=== PATIENT | female | born 1975 | race Two or more races ===

== ENCOUNTER → 2016-12-03 | Outpatient (REF) | payer OTHER ==
[~2016-12-03] MED LIST: DEPA500T2 PO; DITR1TAB PO; DOCU10CA PO; HAIRTAB5 PO; IBUP80TA PO; LORTTAB2 PO; NORCOTAB PO; PAME10CA PO; REGL10TA6 PO; TOPA100T PO
[2016-12-03 13:53] LABS: BASO % 0.6 % (0.0-1.0); EOS # 0.1 K/mm3 (0.0-0.50); EOS % 1.9 % (0.0-3.0); LARGE UNSTAINED CELL # 0.1 K/mm3 (0.0-0.4); LARGE UNSTAINED CELL % 1.7 % (0.0-4.0); LYMPH # 1.7 K/mm3 (1.5-4.5); LYMPH % 30.7 % (24.0-44.0); MEAN CORPUSCULAR HEMOGLOBIN 29.8 pg (27.0-33.0); MEAN CORPUSCULAR HGB CONC 33.2 g/dl (32.0-36.5); MEAN CORPUSCULAR VOLUME 89.6 fl (80.0-96.0); MONO # 0.4 K/mm3 (0.0-0.8); MONO % 6.8 % (0.0-5.0); NEUTROPHILS # 3.1 K/mm3 (1.8-7.7); NEUTROPHILS % 58.3 % (36.0-66.0); PLATELET COUNT, AUTOMATED 264 k/mm3 (150-450); RED CELL DISTRIBUTION WIDTH 12.9 % (11.5-14.5); WHITE BLOOD COUNT 5.3 K/mm3 (4.0-10.0)
[2016-12-03 14:18] LABS: ALBUMIN 3.9 GM/DL (3.2-5.2); ALBUMIN/GLOBULIN RATIO 1.22 (1.00-1.93); ALKALINE PHOSPHATASE 57 U/L (45-117); ALT/SGPT 18 U/L (12-78); ANION GAP 7 MEQ/L (8-16); AST/SGOT 10 U/L (15-37); BILIRUBIN,TOTAL 0.3 MG/DL (0.2-1.0); BLOOD UREA NITROGEN 11 MG/DL (7-18); CALCIUM LEVEL 8.4 MG/DL (8.5-10.1); CARBON DIOXIDE LEVEL 26 MEQ/L (21-32); CHLORIDE LEVEL 106 MEQ/L (98-107); FREE T4 1.02 NG/DL (0.76-1.46); GLOMERULAR FILTRATION RATE > 60.0 (>58); GLUCOSE, FASTING 84 MG/DL (70-105); POTASSIUM SERUM 4.1 MEQ/L (3.5-5.1); SODIUM LEVEL 139 MEQ/L (136-145); TOTAL PROTEIN 7.1 GM/DL (6.4-8.2)
[2016-12-03 14:50] LABS: ERYTHROCYTE SEDIMENTATION RATE 17 mm/hr (0-20)
== END ==
LOC: M SFHCPLAZ 11:01
PROVIDERS: ATTEND Internal Medicine Infectious Disease
DX: B57.1 Acute Chagas' disease without heart involvement (principal); R60.0 Localized edema

== ENCOUNTER → 2016-12-05 | Outpatient (CLI) | payer OTHER ==
--- NOTE | 2016-12-05 12:58 | REP ---
REASON: History of Chagas disease. COMPARISON EXAMINATION: None. Multiple sonographic images of the gallbladder show multiple echogenic foci adherent to the gallbladder wall but not casting acoustic shadows or comet-tail artifact. There is irregular diffuse gallbladder wall thickening with a maximal thickness of 3 mm. There is no evidence of pericholecystic edema. The technologist did make note on the worksheet that the patient has a positive sonographic Stevenson sign. Multiple ultrasonographic images of the liver show diffuse increased echoes throughout. In the right lobe, there is a 1.2 x 0.9 x 1.1 cm sized area of increased echoes with increased through transmission seen in the right lobe and consistent with a small hepatic hemangioma. There is no intrahepatic or extrahepatic ductal dilatation. The common bile duct measures between 4 mm and 5 mm. The imaged portion of the pancreas and right kidney are essentially unremarkable. IMPRESSION: 1. Multiple gallbladder polyps are suspected seen in conjunction with diffuse gallbladder wall thickening. No comet-tail artifact is present, however, cholesterolosis of the gallbladder cannot be ruled out and should be correlated clinically. Consider hepatobiliary imaging with gallbladder ejection fraction calculation if clinically relevant. 2. Tiny benign hepatic hemangioma. 3. Fatty infiltration of the liver, which appears mild. Signed by Caden Crow DO 12/05/2016 02:47 P
== END ==
LOC: M RAD 07:53
PROVIDERS: ATTEND Internal Medicine Infectious Disease
DX: K82.4 Cholesterolosis of gallbladder (principal); K76.0 Fatty (change of) liver, not elsewhere classified; D18.03 Hemangioma of intra-abdominal structures

== ENCOUNTER → 2016-12-18 | Outpatient (CLI) | payer OTHER ==
[~2016-12-18] MED LIST changes: +E-Z-GAS II EFFERVESCENT PACKET (SODIUM BICARB./CITRIC ACID/SIMETHICONE) As Ordered ONE; +E-Z-HD 98% w/w 340GM SUSP BTL As Ordered ONE; +E-Z-PAQUE 96% w/w SUSP 176GM BTL As Ordered ONE
--- NOTE | 2016-12-18 17:00 | REP ---
UPPER GI, AIR CONTRAST: The procedure was performed under the direct supervision of Dr. Dial. The images were reviewed with Dr. Dial. The criminology teacher film shows no organomegaly or pathological masses. The intestinal gas pattern is nonspecific. Liquid barium and gas-producing granules were given in the erect position as well as liquid barium in the prone oblique position in order to perform a double contrast upper GI examination. The oral and pharyngeal stages of deglutition are unremarkable. There is no esophagitis, stricture, mucosal ring or hiatal hernia. There is mild gastroesophageal reflux demonstrated to below the level of the manuel. In the greater curvature of the stomach, there is a 7 mm polyp identified. The remainder of the stomach is unremarkable. The duodenal dickerson are normally outlined. The mucosal folds are smooth and regular. There is no duodenitis, pancreatitis, peptic ulcer disease or neoplasm. The visualized portion of the proximal small bowel appears normal in course and caliber. IMPRESSION: 1. In the greater curvature of the stomach, there is a 7 mm polyp identified. 2. There is mild gastroesophageal reflux demonstrated to below the level of the manuel. 3 minutes and 4 seconds of fluoroscopy time was utilized for this procedure. Reviewed by JARON Betancur 12/18/2016 05:22 PEdited and Signed by Denny Dial MD 12/19/2016 10:18 A
== END ==
LOC: M RAD 08:35
PROVIDERS: ATTEND Internal Medicine Infectious Disease
DX: B57.1 Acute Chagas' disease without heart involvement (principal); K31.7 Polyp of stomach and duodenum; K21.9 Gastro-esophageal reflux disease without esophagitis

== ENCOUNTER → 2016-12-24 | Outpatient (CLI) | payer OTHER ==
[~2016-12-24] MED LIST changes: -E-Z-GAS II EFFERVESCENT PACKET (SODIUM BICARB./CITRIC ACID/SIMETHICONE) As Ordered ONE; -E-Z-HD 98% w/w 340GM SUSP BTL As Ordered ONE; -E-Z-PAQUE 96% w/w SUSP 176GM BTL As Ordered ONE
--- NOTE | 2016-12-27 14:24 | ECHO ---
DATE OF PROCEDURE: 12/24/2016 REFERRING PROVIDER: Dr. Nagi Malik INDICATION: Edema. HEIGHT: 63 inches. WEIGHT: 171 pounds. 2D MEASUREMENTS: Left atrium: 2.7 cm Aortic root: 3.0 cm Ventricular septum: 0.94 cm Posterior wall: 0.85 cm Left ventricle diastole: 4.1 cm LVOT: 2.1 cm Inferior vena cava: 1.4 cm DOPPLER MEASUREMENTS: Aortic valve velocity: 112 cm/s LVOT velocity: 92.5 cm/s LVOT-VTI: 17.9 cm. Mitral E velocity: 55.6 cm/s Mitral A velocity: 61.7 cm/s Mitral deceleration time: 161 ms Very mild tricuspid regurgitation. Estimated right ventricle systolic pressure: 18 mmHg assuming a right pressure of 5 mmHg. Pulmonary systolic pressure 27 mmHg by pulmonary acceleration time method. MITRAL ANNULAR TISSUE DOPPLER: E-prime septal: 7.6 cm/s E-prime lateral: 12.5 cm/s DESCRIPTION: Rhythm was sinus. This was a moderately technical difficult echocardiogram. No pericardial effusion. This is a 2D, M-mode, color flow Doppler, and pulse wave Doppler examination including mitral annular tissue Doppler. CONCLUSIONS: 1. Normal echocardiogram Doppler. 2. Central venous pressure estimated to be 5-10 mmHg. Normal estimated right ventricle systolic pressure and pulmonary systolic pressure. 3. Normal left ventricle internal dimensions and wall thickness. Normal LV wall motion and wall thickening. Normal left ventricular (LV) systolic function. Left ventricular ejection fraction (LVEF) 60% by visual estimate. Normal left ventricular diastolic function. MTDD
== END ==
LOC: M CARPUL 10:10
PROVIDERS: ATTEND Internal Medicine Infectious Disease
DX: R60.0 Localized edema (principal)

== ENCOUNTER → 2017-01-09 | Outpatient (CLI) | payer OTHER ==
[~2017-01-09] VITALS: Ht 160 cm; Wt 77.1 kg
[~2017-01-09] MED LIST changes: +NS 1,000 ML IV ONE; +PROPOFOL 500 MG/50 ML VIAL As Ordered ONE; +RANI15ELUD PO
--- NOTE | 2017-01-09 13:43 | ROOR ---
Patient Name: Klaudia Molina Procedure Date: 01/09/2017 1:15 PM Date of : 1975 Age: 41 Room: [facility] Gender: Female Note Status: Finalized Procedure: Upper GI endoscopy Indications: Heartburn, Abnormal UGI series, gastric polyp Providers: Keenan CENTENO MD Referring MD: Nagi CABRAL MD., RADHA GARCIA MD Requesting Provider: Medicines: Monitored Anesthesia Care Complications: No immediate complications. Procedure: Pre-Anesthesia Assessment: - The heart rate, respiratory rate, oxygen saturations, blood pressure, adequacy of pulmonary ventilation, and response to care were monitored throughout the procedure. The Endoscope was introduced through the mouth, and advanced to the second part of duodenum. The upper GI endoscopy was accomplished without difficulty. The patient tolerated the procedure well. Findings: A single 5 mm sessile fundic gland polyp was found on the greater curvature of the gastric body. The polyp was removed with a cold snare. Resection and retrieval were complete. The entire examined stomach was otherwise normal. The examined esophagus was normal. The examined duodenum was normal. Impression: - A single fundic gland appearing polyp. Resected and retrieved. - Otherwise normal stomach. - Normal esophagus. - Normal examined duodenum. Recommendation: - Telephone endoscopist for pathology results in 2 weeks. Keenan Centeno MD Keenan CENTENO MD 01/09/2017 1:43:50 PM This report has been signed electronically. Number of Addenda: 0 Note Initiated On: 01/09/2017 1:15 PM Estimated Blood Loss: Estimated blood loss: none.
--- NOTE | 2017-01-09 13:47 | ROOR ---
Patient Name: Klaudia Molina Procedure Date: 01/09/2017 1:16 PM Date of : 1975 Age: 41 Room: [facility] Gender: Female Note Status: Finalized Procedure: Colonoscopy Indications: Generalized abdominal pain, Irritable bowel syndrome with constipation, Constipation Providers: Keenan CENTENO MD Referring MD: Nagi CABRAL MD., RADHA GARCIA MD Requesting Provider: Medicines: Monitored Anesthesia Care Complications: No immediate complications. Procedure: Pre-Anesthesia Assessment: - The heart rate, respiratory rate, oxygen saturations, blood pressure, adequacy of pulmonary ventilation, and response to care were monitored throughout the procedure. The Colonoscope was introduced through the anus and advanced to the terminal ileum, with identification of the appendiceal orifice and IC valve. The colonoscopy was performed without difficulty. The patient tolerated the procedure well. The quality of the bowel preparation was good. Findings: The perianal and digital rectal examinations were normal. The terminal ileum appeared normal. The entire examined colon appeared normal on direct and retroflexion views. Small Internal Hemorrhoids. Impression: - The examined portion of the ileum was normal. - The entire examined colon is normal on direct and retroflexion views. - Small Internal Hemorrhoids. - No specimens collected. Recommendation: - Miralax 1 capful (17 grams) in 8 ounces of water PO daily. Keenan Centeno MD Keenan CENTENO MD 01/09/2017 1:46:41 PM This report has been signed electronically. Number of Addenda: 0 Note Initiated On: 01/09/2017 1:16 PM Estimated Blood Loss: Estimated blood loss: none.
[2017-01-09 14:10] VITALS: BP 118/69
== END ==
LOC: M OPP 11:26
PROVIDERS: ATTEND Internal Medicine Gastroenterology
DX: R10.84 Generalized abdominal pain (principal); K58.1 Irritable bowel syndrome with constipation; K59.00 Constipation, unspecified; K64.8 Other hemorrhoids; R93.3 Abnormal findings on diagnostic imaging of other parts of digestive tract; R12 Heartburn; K31.7 Polyp of stomach and duodenum; Z79.899 Other long term (current) drug therapy; Z88.1 Allergy status to other antibiotic agents; Z91.89 Other specified personal risk factors, not elsewhere classified; Z91.013 Allergy to seafood

== ENCOUNTER 2017-04-24 07:26 | Day surgery (SDC) | payer OTHER ==
[~2017-04-24] VITALS: Ht 160 cm; Wt 79.4 kg
[~2017-04-24 07:26] MED LIST changes: -NS 1,000 ML IV ONE; -PROPOFOL 500 MG/50 ML VIAL As Ordered ONE
[2017-04-24] MEDS ORDERED: LIDOCAINE 1% MDV 20ML VIAL SC ONE (07:30)
[2017-04-24] MEDS ORDERED: LR 1,000 ML IV ONE (07:30)
[2017-04-24] MEDS ORDERED: fentaNYL 100 MCG/2 ML INJECTION (J3010) As Ordered ONE (07:39)
[2017-04-24] MEDS ORDERED: HYDROmorphone HCL 2 MG/ML 1ML VIAL (J1170) As Ordered ONE (07:39)
[2017-04-24] MEDS ORDERED: MIDAZOLAM INJ 2 MG/2 ML VIAL (J2250) As Ordered ONE (07:39)
[2017-04-24] MEDS ORDERED: CONRAY-60 60% 50ML VIAL (Q9961) As Ordered ONE (08:17)
[2017-04-24] MEDS ORDERED: GLUCAGON FOR INJ 1 MG VIAL (J1610) As Ordered ONE (08:17)
[2017-04-24] MEDS ORDERED: BUPIVACAINE/EPIN 0.25% 30 ML VIAL As Ordered ONE (08:17)
[2017-04-24] MEDS ORDERED: PROPOFOL 200 MG/20 ML VIAL As Ordered ONE ×2 (09:01→09:05)
[2017-04-24] MEDS ORDERED: ROCURONIUM BROMIDE 50 MG/5 ML VIAL/SYRINGE As Ordered ONE (09:01)
[2017-04-24] MEDS ORDERED: dexameTHASONE 4 MG/ML 1ML VIAL (J1100) As Ordered ONE (09:01)
[2017-04-24] MEDS ORDERED: METOCLOPRAMIDE INJ 10MG/2ML VIAL (J2765) As Ordered ONE (09:02)
[2017-04-24] MEDS ORDERED: ONDANSETRON 4MG/2ML VIAL (J2405) As Ordered ONE (09:02)
[2017-04-24] MEDS ORDERED: LIDOCAINE 2% INJ 100 MG/5 ML SDV (FOR ANES.) As Ordered ONE (09:03)
[2017-04-24] MEDS ORDERED: GLYCOPYRROLATE INJ 0.2 MG/ML 2 ML VIAL As Ordered ONE (09:22)
[2017-04-24] MEDS ORDERED: NEOSTIGMINE 10 MG/10 ML VIAL (J2710) As Ordered ONE (09:22)
[2017-04-24] MEDS ORDERED: KETOROLAC 60 MG/2 ML VIAL (J1885) As Ordered ONE (09:23)
[2017-04-24] MEDS ORDERED: NORCO, ANEXSIA 5/325MG TABLET (HYDROcodone/ACETAMINOPHEN) PO PRN (10:00)
[2017-04-24] MEDS ORDERED: ONDANSETRON 4MG/2ML VIAL (J2405) IV PRN ×2 (10:00)
[2017-04-24] MEDS ORDERED: fentaNYL 100 MCG/2 ML INJECTION (J3010) IV PRN (10:00)
[2017-04-24] MEDS ORDERED: MORPHINE 2 MG/ML 1ML SYRINGE IV PRN ×2 (10:00)
[2017-04-24] MEDS ORDERED: PERCOCET 5MG/325MG TAB PO PRN (10:00)
[2017-04-24] MEDS ORDERED: LR 1,000 ML IV SCH ×2 (10:00)
[2017-04-24] MEDS ORDERED: METOCLOPRAMIDE INJ 10MG/2ML VIAL (J2765) IV PRN (10:00)
--- NOTE | 2017-04-24 10:21 | RO ---
DATE OF PROCEDURE: 04/24/2017 PREOPERATIVE DIAGNOSIS: Symptomatic gallbladder dysfunction. POSTOPERATIVE DIAGNOSIS: Symptomatic gallbladder dysfunction. PROCEDURE: Laparoscopic cholecystectomy. SURGEON: Dr. Sung Foote FINGERPRINT CLASSIFIER: ANESTHESIA: General endotracheal anesthesia. ESTIMATED BLOOD LOSS: Minimal. FLUIDS: Crystalloid. BRIEF PROCEDURE SUMMARY: The patient was taken to the operating room and was given general anesthesia. After adequate anesthesia and preoperative antibiotics were given, the patient was prepped and draped in the usual sterile fashion. Next, a periumbilical incision was made with skin knife. Blunt dissection was carried down to fascia. Fascia was grasped with Antonio clamps, elevated, and a Veress needle placed into the abdominal cavity and insufflated to 15 mm of pressure. A 10 mm trocar was placed at the umbilicus under direct visualization and an epigastric and two lateral trocars were placed. The gallbladder was grasped, retracted superiorly and the neck of the gallbladder was cleared of surrounding tissue down to the gallbladder neck/cystic duct junction and [place] was placed on this and dissected back. The gallbladder then was dissected posteriorly. A good window behind the neck of the gallbladder was appreciated and the cystic artery was way up on the gallbladder itself and when following the gallbladder came onto the surface of the gallbladder about midway up. This was seen and followed all the way up. Then, an additional artery that was posterior on the gallbladder bed was also seen, much smaller only 2-3 mm in size. This was clipped. The cystic duct/gallbladder junction was clipped proximally and distally and transected. The gallbladder was removed from the gallbladder bed using electrocautery and brought out through the umbilicus in an EndoCatch bag. The right upper quadrant was copiously irrigated until clear. #0 Vicryl was used close fascia at the umbilicus and all incisions were closed with #4-0 Vicryl. Steri-Strips and dry sterile dressing was applied. The patient was awakened, extubated and brought to the recovery room awake, alert and hemodynamically stable. Sponge and needle counts correct times two.
[2017-04-24 11:58] VITALS: BP 120/77
[2017-04-24] MEDS ORDERED: KETOROLAC 30 MG/ML VIAL (J1885) IV SCH (16:00)
== END 2017-04-24 12:00 | disposition home or self-care (01) ==
LOC: M SDC 07:26
PROVIDERS: ATTEND Surgery
DX: K81.1 Chronic cholecystitis (principal); K21.9 Gastro-esophageal reflux disease without esophagitis; M54.2 Cervicalgia; G43.909 Migraine, unspecified, not intractable, without status migrainosus; Z88.1 Allergy status to other antibiotic agents; Z91.041 Radiographic dye allergy status; Z91.048 Other nonmedicinal substance allergy status; Z91.013 Allergy to seafood; Z90.710 Acquired absence of both cervix and uterus
CPT/HCPCS: 47562; 88304; 96374; J0690; J1100; J1170; J1885; J2250; J2405; J2710; J2765; J3010

== ENCOUNTER 2018-03-03 13:20 | Emergency (ER) | payer OTHER | END 2018-03-03 16:59 | disposition home or self-care (01) | LOC: M ED 13:20 | DX: S09.90XA Unspecified injury of head, initial encounter (principal); S16.1XXA Strain of muscle, fascia and tendon at neck level, initial encounter; R20.0 Anesthesia of skin; V49.40XA Driver injured in collision with unspecified motor vehicles in traffic accident, initial encounter; Y92.410 Unspecified street and highway as the place of occurrence of the external cause; Z91.041 Radiographic dye allergy status; Z88.1 Allergy status to other antibiotic agents; Z88.8 Allergy status to other drugs, medicaments and biological substances; Z91.013 Allergy to seafood | CPT/HCPCS: 72141 ==

== ENCOUNTER → 2018-06-15 | Outpatient (CLI) | payer OTHER | LOC: M PAIN 15:15 | DX: M25.512 Pain in left shoulder (principal); G56.92 Unspecified mononeuropathy of left upper limb; R42 Dizziness and giddiness; M54.2 Cervicalgia; K21.9 Gastro-esophageal reflux disease without esophagitis; G43.909 Migraine, unspecified, not intractable, without status migrainosus; Z79.899 Other long term (current) drug therapy; Z90.49 Acquired absence of other specified parts of digestive tract; Z90.710 Acquired absence of both cervix and uterus; Z88.1 Allergy status to other antibiotic agents; Z91.041 Radiographic dye allergy status; Z91.013 Allergy to seafood | CPT/HCPCS: G0463 ==

== ENCOUNTER → 2018-07-15 | Outpatient (CLI) | payer OTHER ==
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
== END ==
LOC: M PAIN 10:45
PROVIDERS: ATTEND Anesthesiology
DX: M79.2 Neuralgia and neuritis, unspecified (principal); M79.18 Myalgia, other site; M25.512 Pain in left shoulder; M79.602 Pain in left arm; M54.2 Cervicalgia; G43.909 Migraine, unspecified, not intractable, without status migrainosus; Z79.899 Other long term (current) drug therapy; Z88.8 Allergy status to other drugs, medicaments and biological substances; Z91.041 Radiographic dye allergy status; Z91.013 Allergy to seafood; Z86.19 Personal history of other infectious and parasitic diseases; Z86.69 Personal history of other diseases of the nervous system and sense organs

== ENCOUNTER 2018-08-18 11:39 | Day surgery (SDC) | payer OTHER ==
[~2018-08-18] VITALS: Ht 157.5 cm; Wt 82.6 kg
[~2018-08-18 11:39] MED LIST changes: +CYMB1CAP5 PO; +GLYCOPYRROLATE INJ 0.2 MG/ML 2 ML VIAL As Ordered ONE; +LIDOCAINE 2% INJ 100 MG/5 ML SDV (FOR ANES.) As Ordered ONE; +LR 1,000 ML IV ONE; +MAGN400C2 PO; +MIDAZOLAM INJ 2 MG/2 ML VIAL (J2250) As Ordered ONE; +MIDAZOLAM INJ 2 MG/2 ML VIAL (J2250) IV SCH; +NEOSTIGMINE 10 MG/10 ML VIAL (J2710) As Ordered ONE; +ONDANSETRON 4MG/2ML VIAL (J2405) As Ordered ONE; +PROPOFOL 200 MG/20 ML VIAL As Ordered ONE; +ROCURONIUM BROMIDE 50 MG/5 ML VIAL As Ordered ONE; +TIZA2CAP PO; +VITA100T98 PO; +dexameTHASONE 4 MG/ML 1ML VIAL (J1100) As Ordered ONE; +fentaNYL 100 MCG/2 ML INJECTION (J3010) As Ordered ONE
[2018-08-18] MEDS ORDERED: MIDAZOLAM INJ 2 MG/2 ML VIAL (J2250) As Ordered ONE ×2 (12:27→18:11)
[2018-08-18] MEDS ORDERED: fentaNYL 100 MCG/2 ML INJECTION (J3010) As Ordered ONE ×2 (12:27→16:13)
[2018-08-18] MEDS: fentaNYL 100 MCG/2 ML INJECTION (J3010) IV SCH ×2 (12:46→13:14)
[2018-08-18] MEDS ORDERED: LIDOCAINE 1% SDV INJ 30 ML VIAL As Ordered ONE (12:49)
[2018-08-18] MEDS ORDERED: EPINEPHrine 1MG/ML INJ 30ML MD-VIAL As Ordered ONE (12:50)
[2018-08-18] MEDS ORDERED: MIDAZOLAM INJ 2 MG/2 ML VIAL (J2250) IV ONE (13:45)
[2018-08-18] MEDS ORDERED: LIDOCAINE 1% MDV 20ML VIAL As Ordered ONE (15:17)
[2018-08-18] MEDS ORDERED: PROPOFOL 200 MG/20 ML VIAL As Ordered ONE (15:19)
[2018-08-18] MEDS: fentaNYL 100 MCG/2 ML INJECTION (J3010) IV PRN ×4 (16:17→16:32)
[2018-08-18] MEDS ORDERED: PERCOCET 5MG/325MG TAB As Ordered ONE ×2 (16:24→16:54)
[2018-08-18] MEDS: PERCOCET 5MG/325MG TAB PO PRN ×2 (16:25→16:55)
[2018-08-18] MEDS ORDERED: LR 1,000 ML IV SCH ×3 (17:15→18:45)
[2018-08-18] MEDS ORDERED: ONDANSETRON 4MG/2ML VIAL (J2405) IV PRN ×2 (17:15→18:45)
[2018-08-18] MEDS ORDERED: MORPHINE 10 MG/ML 1ML VIAL (J2270) As Ordered ONE (17:38)
[2018-08-18] MEDS: MORPHINE 10 MG/ML 1ML VIAL (J2270) IV PRN ×3 (17:43→17:53)
[2018-08-18] MEDS ORDERED: PERCOCET 5MG/325MG TAB PO PRN (18:45)
[2018-08-18] MEDS ORDERED: MIDAZOLAM INJ 2 MG/2 ML VIAL (J2250) IV SCH (18:45)
[2018-08-18] MEDS ORDERED: fentaNYL 100 MCG/2 ML INJECTION (J3010) IV PRN (18:45)
[2018-08-18] MEDS ORDERED: MORPHINE 10 MG/ML 1ML VIAL (J2270) IV PRN (18:45)
--- NOTE | 2018-08-18 18:51 | REP ---
Chest one-view HISTORY: Postop Comparison: 11/06/2012 The lungs are clear. The heart is normal in size. The pulmonary vasculature is normal in appearance. Impression: No acute disease. Electronically Signed by Royce Araya MD 08/18/2018 06:41 P
[2018-08-18 19:32] VITALS: BP 123/66
--- NOTE | 2018-08-19 17:26 | ECGEPIP ---
Stationary ECG Study [facility] Test Date: 2018-08-18 Pat Name: JONE HATFIELD Department: Room: - Gender: F Clinician Oncology: : 1975 Requested By: CHI Williamson Order Number: [id number] Reading MD: Akira Buck Measurements Intervals Davilla Rate: 85 P: 67 DC: 196 QRS: 21 QRSD: 85 T: 25 QT: 362 QTc: 431 Interpretive Statements Normal sinus rhythm with borderline first-degree AV block Low voltage throughout Nonspecific repolarization abnormalities No significant change since 11/06/2012 Electronically Signed On 08-19-2018 17:25:58 EST by Akira Buck
--- NOTE | 2018-08-31 09:41 | RO ---
DATE OF PROCEDURE: 08/18/2018 PREOPERATIVE DIAGNOSES: 1. Left shoulder partial thickness rotator cuff tear. 2. Left shoulder long head biceps tear. 3. Left shoulder the acromioclavicular joint arthritis. POSTOPERATIVE DIAGNOSES 1. Left shoulder partial thickness rotator cuff tear. 2. Left shoulder long head biceps tear. 3. Left shoulder the acromioclavicular joint arthritis. 4. Left shoulder superior labral tear. PROCEDURE: 1. Left shoulder arthroscopy with rotator cuff debridement. 2. Left shoulder open subpectoral biceps tenodesis. 3. Left shoulder arthroscopic distal clavicle excision. 4. Left shoulder arthroscopic labral debridement, and subacromial decompression with acromioplasty. SURGEON: Phil Richards MD SCHEME TECHNICIAN: Rohit Ward PA-C ANESTHESIA: General with preoperative nerve block. IV FLUIDS: Lactated Ringer's. ESTIMATED BLOOD LOSS: 5 mL. IMPLANTS: Arthrex proximal biceps tenodesis button times one. CLOSURE: Monocryl and nylon. PROCEDURE: Patient identified in the preoperative holding area. The left arm marked by myself. She had an interscalene nerve block. She was brought to the operating room, placed supine on a well-padded OR table. General anesthesia was induced. She had bilateral Venodyne boots for deep vein thrombosis (DVT) prophylaxis. Examination under anesthesia revealed 170 forward flexion, 90 of external rotation and grade 1 anterior and posterior load and shift. She was placed into the right side down lateral decubitus position with an axillary roll and all bony prominences well padded. She was secured the OR table. The left arm was placed into the Arthrex STaR Sleeve lateral decubitus traction device with 10 pounds of traction. The left shoulder was then prepped and draped in the normal sterile fashion with Chloraprep. She received appropriate IV antibiotics within 1 hour of incision. Time out was then performed per hospital protocol. Rohit was present for the entire procedure and participated in all essential portions of the procedure. This included patient positioning and draping, holding the arthroscope, holding retractors, passage of suture during the tenodesis and wound closure. The left shoulder was insufflated with lactated Ringer's. Standard posterior viewing portal made with an 11 blade. A 30 degree arthroscope was introduced into the joint. Diagnostic arthroscopy carried out. There was tearing of the superior labrum from anterior to posterior. Negative drive-through sign. The glenohumeral joint had intact chondral surfaces. The posterior and inferior labrum were intact. There was a partial articular tear of the supraspinatus anteriorly. Subscapularis was intact. There was an abnormal connection between the long head of the biceps tendon to the underlying supraspinatus. An anterior working portal was established with a rotator interval. Purple Arthrex cannula was placed. On probing of the superior labrum, the biceps labral anchor complex was found to be unstable. There was a Attapulgus complex. Additionally, there was partial articular tearing of the supraspinatus. I performed a rotator cuff debridement with a shaver to remove loose flaps of rotator cuff tissue. There were abnormal connections between the biceps tendon and the supraspinatus tendon. Based on the patient's intraoperative findings and preoperative symptoms, she was indicated for biceps tenotomy and tenodesis. However, to avoid propagating the supraspinatus tear, I used a hooked cautery device to release the long head of the biceps from the underlying supraspinatus. This added time to the procedure. With the biceps tendon now freed up, I was able to perform a tenotomy with the meniscal punch. The stump was debrided back to superior labrum. Additional labral debridement with a shaver. There was no lift off of the subscapularis when doing the posterior lever push. Posterior rotator cuff was intact. I then proceeded with an open subpectoral biceps tenodesis. Incision made just lateral to the axilla, centered over the pectoralis major tendon. Dissection was carried out down to the bicipital groove. The biceps fascia carefully opened with scissors. Long head of biceps was identified and retrieved through the incision uneventfully. The Arthrex proximal biceps tenodesis kit was opened where running locking whipstitch placed with the FiberLoop. Sutures were loaded through the tenodesis button per protocol. Cautery used to laura out the proposed drill hole within the bicipital groove just proximal to lower edge of the pectoralis tendon and the sutures then approximated to the cautery laura and this was found to restore the resting tension nicely. The spade tip drill bit was used to create a unicortical socket within the bicipital groove. Irrigation was used to remove bony debris. The button was then placed through the drill hole on the railcar mechanic. Sutures were toggled, which flipped the button, and reduced the tendon to the bicipital groove nicely. The free needle was used to pass one limb of FiberWire back through the tendon, lock the construct in place, and knots were tied by hand. Excess suture trimmed and discarded. This nicely restored the resting tension. Incision was extensively irrigated and then I closed in a layered fashion with #2-0 Vicryl running Monocryl. At the end of the case Steri-Strips were placed. The arthroscope was then placed into the subacromial space where there was extensive bursitis. A lateral working portal was established, bursectomy performed with cautery and shaver. There was a moderate subacromial spur so I performed an acromioplasty with the bur turning this into a type 1 morphology. There was mild bursal sided supraspinatus tearing and the shaver was used to carefully remove the superficial frayed tissue. The remaining tendon was palpated with the with a switching stick. There were no high-grade tears. Attention was then turned to the distal clavicle excision. Through the anterior working portal. Cautery was used to clear out soft tissue. There was minimal space between the clavicle and acromion. I then used a bur to remove 6-7 mm of the distal clavicle and 1 mm from the acromion. The arthroscope was intermittently placed into the anterior portal to get a direct view at the AC joint and ensure an adequate decompression. There was no residual posterior-superior bone. Shoulder was irrigated and drained. Portals closed with nylon suture. Bulky sterile dressing applied. She was placed into her sling and transferred to postanesthesia care unit (PACU) after being extubated. SANTA
== END 2018-08-18 19:47 | disposition home or self-care (01) ==
LOC: M SDC 11:39
PROVIDERS: ATTEND Orthopaedic Surgery
DX: M75.112 Incomplete rotator cuff tear or rupture of left shoulder, not specified as traumatic (principal); S46.112A Strain of muscle, fascia and tendon of long head of biceps, left arm, initial encounter; M19.012 Primary osteoarthritis, left shoulder; S43.492A Other sprain of left shoulder joint, initial encounter; I10 Essential (primary) hypertension; K21.9 Gastro-esophageal reflux disease without esophagitis; F41.9 Anxiety disorder, unspecified; G43.909 Migraine, unspecified, not intractable, without status migrainosus; R39.15 Urgency of urination; R32 Unspecified urinary incontinence; T88.59XD Other complications of anesthesia, subsequent encounter; R00.2 Palpitations; Z88.1 Allergy status to other antibiotic agents; Z91.013 Allergy to seafood; Z91.041 Radiographic dye allergy status; Z91.048 Other nonmedicinal substance allergy status; Z79.899 Other long term (current) drug therapy; Z87.820 Personal history of traumatic brain injury; Z90.710 Acquired absence of both cervix and uterus; X58.XXXA Exposure to other specified factors, initial encounter; Y93.89 Activity, other specified; Y92.89 Other specified places as the place of occurrence of the external cause; Y99.8 Other external cause status
CPT/HCPCS: 23430; 29824; 29826; 64415; 71045; 88304; 93005; C1713; J0690; J1100; J2250; J2270; J2405; J2710; J3010

== ENCOUNTER 2018-08-25 18:48 | Emergency (ER) | payer OTHER ==
[~2018-08-25] VITALS: Ht 160 cm; Wt 84.3 kg
[~2018-08-25 18:48] MED LIST changes: -GLYCOPYRROLATE INJ 0.2 MG/ML 2 ML VIAL As Ordered ONE; -LIDOCAINE 2% INJ 100 MG/5 ML SDV (FOR ANES.) As Ordered ONE; -LR 1,000 ML IV ONE; -MIDAZOLAM INJ 2 MG/2 ML VIAL (J2250) As Ordered ONE; -MIDAZOLAM INJ 2 MG/2 ML VIAL (J2250) IV SCH; -NEOSTIGMINE 10 MG/10 ML VIAL (J2710) As Ordered ONE; -ONDANSETRON 4MG/2ML VIAL (J2405) As Ordered ONE; -PROPOFOL 200 MG/20 ML VIAL As Ordered ONE; -ROCURONIUM BROMIDE 50 MG/5 ML VIAL As Ordered ONE; -dexameTHASONE 4 MG/ML 1ML VIAL (J1100) As Ordered ONE; -fentaNYL 100 MCG/2 ML INJECTION (J3010) As Ordered ONE
[2018-08-25] MEDS ORDERED: MORP-38 (18:56)
[2018-08-25] MEDS ORDERED: OXYC-517 (18:56)
[2018-08-25] MEDS ORDERED: IBUP-1022 (18:56)
[2018-08-25] MEDS ORDERED: ACET500T15 PO (18:56)
[2018-08-25] MEDS ORDERED: BENZONATATE 100 MG CAP PO ONE (20:00)
[2018-08-25] MEDS ORDERED: PERCOCET 5MG/325MG TAB PO ONE (20:00)
[2018-08-25] MEDS ORDERED: NEOSPORIN OINT 0.9 GM PKT (FLOOR STOCK) As Ordered ONE (20:50)
[2018-08-25] MEDS ORDERED: TESS100C PO (20:54)
[2018-08-25 21:07] VITALS: BP 111/56
--- NOTE | 2018-08-26 07:38 | REP ---
Clinical: Shortness of breath . Comparison: 08/18/2018 . Technique: PA and lateral. Findings: The mediastinum and cardiac silhouette are normal. The lung donovan are clear and without acute consolidation, effusion, or pneumothorax. The skeletal structures are intact and normal. Impression: 1. No acute cardiopulmonary process. Electronically Signed by Cole Valenzuela MD 08/26/2018 07:30 A
== END 2018-08-25 21:20 | disposition home or self-care (01) ==
LOC: M ED 18:48
DX: G89.18 Other acute postprocedural pain (principal); M25.512 Pain in left shoulder; R05 Cough; R42 Dizziness and giddiness; W22.09XA Striking against other stationary object, initial encounter; Y92.098 Other place in other non-institutional residence as the place of occurrence of the external cause; I10 Essential (primary) hypertension; Z88.1 Allergy status to other antibiotic agents; Z88.8 Allergy status to other drugs, medicaments and biological substances; Z91.041 Radiographic dye allergy status; Z91.013 Allergy to seafood; Z79.899 Other long term (current) drug therapy

== ENCOUNTER → 2018-08-26 | Outpatient (CLI) | payer OTHER ==
[~2018-08-26] MED LIST changes: +ACET500T15 PO; +IBUP-1022; +MORP-38; +OXYC-517; +TESS100C PO
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
== END ==
LOC: M PAIN 14:00
PROVIDERS: ATTEND Anesthesiology
DX: M25.512 Pain in left shoulder (principal); G89.29 Other chronic pain; M79.2 Neuralgia and neuritis, unspecified; G43.909 Migraine, unspecified, not intractable, without status migrainosus; Z79.899 Other long term (current) drug therapy; Z88.8 Allergy status to other drugs, medicaments and biological substances; Z91.041 Radiographic dye allergy status; Z91.013 Allergy to seafood; Z87.820 Personal history of traumatic brain injury; Z86.69 Personal history of other diseases of the nervous system and sense organs; Z86.19 Personal history of other infectious and parasitic diseases

== ENCOUNTER → 2018-11-19 | Outpatient (CLI) | payer OTHER ==
[~2018-11-19] MED LIST changes: +HYDR-3715 PO; -NORCOTAB PO; +NORT25CA2 PO; -RANI15ELUD PO; +RANI75SY PO; +ZONI100C2 PO
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
== END ==
LOC: M PAIN 08:45
PROVIDERS: ATTEND Anesthesiology
DX: M25.512 Pain in left shoulder (principal); G89.29 Other chronic pain; M79.2 Neuralgia and neuritis, unspecified; D49.6 Neoplasm of unspecified behavior of brain; G43.909 Migraine, unspecified, not intractable, without status migrainosus; Z79.899 Other long term (current) drug therapy; Z88.8 Allergy status to other drugs, medicaments and biological substances; Z91.041 Radiographic dye allergy status; Z91.013 Allergy to seafood; Z87.820 Personal history of traumatic brain injury; Z86.19 Personal history of other infectious and parasitic diseases; Z86.69 Personal history of other diseases of the nervous system and sense organs

== ENCOUNTER 2018-11-25 09:09 | Day surgery (SDC) | payer OTHER ==
[~2018-11-25] VITALS: Ht 160 cm; Wt 77.1 kg
[~2018-11-25 09:09] MED LIST changes: +LR 1,000 ML IV ONE
[2018-11-25] MEDS ORDERED: LIDOCAINE 1% MDV 20ML VIAL ONE (09:10)
[2018-11-25] MEDS ORDERED: fentaNYL 100 MCG/2 ML INJECTION (J3010) As Ordered ONE ×2 (09:37→11:13)
[2018-11-25] MEDS ORDERED: MIDAZOLAM INJ 2 MG/2 ML VIAL (J2250) As Ordered ONE ×2 (09:37→11:13)
[2018-11-25] MEDS ORDERED: EPINEPHrine 1MG/ML INJ 30ML MD-VIAL As Ordered ONE (10:10)
[2018-11-25] MEDS ORDERED: fentaNYL 100 MCG/2 ML INJECTION (J3010) IV ONE (10:15)
[2018-11-25] MEDS ORDERED: MIDAZOLAM INJ 2 MG/2 ML VIAL (J2250) IV ONE (10:15)
[2018-11-25] MEDS ORDERED: ONDANSETRON 4MG/2ML VIAL (J2405) As Ordered ONE (11:13)
[2018-11-25] MEDS ORDERED: LIDOCAINE 2% INJ 100 MG/5 ML SDV (FOR ANES.) As Ordered ONE (11:13)
[2018-11-25] MEDS ORDERED: ROCURONIUM BROMIDE 50 MG/5 ML VIAL As Ordered ONE (11:13)
[2018-11-25] MEDS ORDERED: dexameTHASONE 4 MG/ML 1ML VIAL (J1100) As Ordered ONE (11:13)
[2018-11-25] MEDS ORDERED: PROPOFOL 200 MG/20 ML VIAL As Ordered ONE (11:13)
[2018-11-25] MEDS ORDERED: GLYCOPYRROLATE INJ 0.2 MG/ML 2 ML VIAL As Ordered ONE (12:03)
[2018-11-25] MEDS ORDERED: NEOSTIGMINE 10 MG/10 ML VIAL (J2710) As Ordered ONE (12:03)
[2018-11-25] MEDS ORDERED: LR 1,000 ML IV SCH (13:30)
[2018-11-25] MEDS: NORCO, ANEXSIA 5/325MG TABLET (HYDROcodone/ACETAMINOPHEN) PO PRN ×2 (13:37→14:07)
[2018-11-25] MEDS: fentaNYL 100 MCG/2 ML INJECTION (J3010) IV PRN ×2 (13:37→13:42)
[2018-11-25] MEDS ORDERED: METOCLOPRAMIDE INJ 10MG/2ML VIAL (J2765) As Ordered ONE (14:36)
[2018-11-25] MEDS ORDERED: METOCLOPRAMIDE INJ 10MG/2ML VIAL (J2765) IV SCH (15:00)
[2018-11-25 15:35] VITALS: BP 111/56
--- NOTE | 2018-11-25 18:12 | RO ---
DATE OF PROCEDURE: 11/25/2018 PREOPERATIVE DIAGNOSES: 1. Left shoulder anterior instability. 2. Left shoulder impingement. 3. Left shoulder possible partial thickness rotator cuff tear. POSTOPERATIVE DIAGNOSES: 1. Left shoulder anterior instability. 2. Left shoulder impingement. 3. Left shoulder possible partial thickness rotator cuff tear. PROCEDURE: 1. Left shoulder arthroscopic anterior labral repair. 2. Left shoulder arthroscopic chondroplasty, superior labral debridement and subacromial decompression. SURGEON: Dr. Phil Richards DOG AND CAT FOOD COOK: NICOLE Green ANESTHESIA: General with preoperative nerve block. IV FLUIDS: Lactated Ringer's. ESTIMATED BLOOD LOSS: 5 mL. IMPLANTS: Arthrex 3 mm Knotless SutureTak times one and Arthrex 2.9 mm PushLock anchor times two with labral tape. CLOSURE: Nylon. DESCRIPTION OF PROCEDURE: Patient was identified in the preoperative holding area, and the left side was marked. She received a preoperative nerve block by anesthesia. She was brought to the operating room, placed supine on a well-padded operating room (OR) table. General anesthesia was induced. Examination under anesthesia revealed 160 degrees of forward flexion, 70 degrees of external rotation. She had a grade 2 plus anterior load and shift, grade 1 posterior load and shift. She was then placed in the right side down lateral decubitus position with an axillary roll and all bony prominences were well padded. The left arm was placed in the Arthrex STaR Sleeve lateral decubitus traction device with 10 pounds of traction. She had bilateral Venodyne boots for deep vein thrombosis (DVT) prophylaxis. The left arm was then prepped and draped in the normal sterile fashion with Chloraprep. Prior to incision, a time-out was performed per hospital protocol. She received appropriate IV antibiotics. Esme was present for the entire procedure and participated in all essential portions of procedure. This included patient positioning and draping, holding the arthroscope, retrieving sutures, providing traction during drilling and cutting sutures arthroscopically, and the wound closure. The left shoulder was insufflated with lactated Ringer's. A standard posterior viewing portal made with an 11-blade. 30-degree arthroscope was introduced into the joint. Diagnostic arthroscopy revealed a positive drive-through sign, which was notably absent at her first surgery. There was a longitudinal fissure at the chondral labral junction of the anterior inferior labrum from the 4:30 to 2:30 position. Again noted previously was a Cindy complex variant. She was already status post tenotomy of the long head of the biceps tendon, and she previously had an articular-sided partial thickness supraspinatus tear. She had evidence of prior rotator cuff debridement. No further tearing appreciated. There was grade 1 chondromalacia in the glenoid, a few small thin flaps of articular cartilage. There was no tearing of the inferior or posterior labrum. An anterior working portal was established just superior to the subscapularis to give the appropriate angle for drilling into the glenoid. Purple Arthrex cannula was placed. On probing of the anterior labrum, there was noted to be a partial thickness tear with loss of the bumper affect. Essentially like a Dilma lesion. The shaver was used to perform a debridement of the superior labrum and chondroplasty of the glenoid. No rotator cuff debridement indicated. Subscapularis was intact. A second portal was established, superolateral portal, through the rotator interval just anterior to the supraspinatus. Hooked cautery was then used to develop the plane between the labrum and articular cartilage from the 7 o'clock to 9:30 position. The labral elevator was then used to elevate the capsule and labrum off the anterior glenoid neck in a subperiosteal fashion. A rasp was used to clear soft tissue off the anterior glenoid neck and create a bleeding surface. The drill guide for a 3 mm Knotless SutureTak was then used to create a socket in the anterior inferior glenoid from the 7:30 position. SutureLasso was then used to shuttle the central suture through the anterior inferior capsule and labrum and then passed through the anchor per routine. My first cook applied posterior force to the proximal humerus as the suture was tensioned, which nicely advanced the anterior inferior labrum to the glenoid neck. This essentially eliminated the drive-through sign. Suture was cut with arthroscopic wiping cloth cutter. Next, I drilled for a 2.9 mm PushLock and shuttled labral tape through capsule and labrum. That anchor was placed around the 8:30 position and had excellent fixation. Those steps were repeated for the second PushLock anchor, which was placed at the 9:30 position. There were a total of three anchors. I should note that I did not repair the anterior superior labrum from the Cindy complex to the glenoid neck. The shoulder was then irrigated and drained. The arthroscope was then placed in the subacromial space, a lateral working portal was established where there was extensive scar tissue in the subacromial space. Bursectomy was performed with a shaver and cautery. Probing of the rotator cuff revealed no bursal-sided tearing similar to her first surgery. Attention was then turned to the acromiclavicular (AC) joint, which had filled in with scar tissue; that was cleared out with cautery and shaver and again confirmed a nice resection of the distal clavicle with no residual impingement. The shoulder was irrigated and drained. Portal was closed with nylon suture. Bulky sterile dressing applied. She was placed into the ARC 2 sling and then extubated and transferred to the post-anesthesia care unit (PACU) in stable condition. COMPLICATIONS: None
== END 2018-11-25 15:37 | disposition home or self-care (01) ==
LOC: M SDC 09:09
PROVIDERS: ATTEND Orthopaedic Surgery
DX: M25.312 Other instability, left shoulder (principal); M75.42 Impingement syndrome of left shoulder; M75.102 Unspecified rotator cuff tear or rupture of left shoulder, not specified as traumatic; I10 Essential (primary) hypertension; K21.9 Gastro-esophageal reflux disease without esophagitis; Z79.899 Other long term (current) drug therapy; F41.9 Anxiety disorder, unspecified; Z91.041 Radiographic dye allergy status; Z91.013 Allergy to seafood; K59.00 Constipation, unspecified
CPT/HCPCS: 29806; 29826; 64415; C1713; J0690; J1100; J2250; J2405; J2710; J2765; J3010

== ENCOUNTER → 2019-04-18 | Outpatient (CLI) | payer OTHER ==
[~2019-04-18] MED LIST changes: +ACET1TAB55 PO; +AJOV225I SC; +AMIT-255 PO; -LR 1,000 ML IV ONE; -MORP-38; +MORP-69; +TOPI100T9 PO; +VIMP100T PO; +ZONI100C17 PO; -ZONI100C2 PO
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
== END ==
LOC: M PAIN 08:45
PROVIDERS: ATTEND Anesthesiology
DX: M25.512 Pain in left shoulder (principal); G89.29 Other chronic pain; M79.2 Neuralgia and neuritis, unspecified; Z98.890 Other specified postprocedural states; G43.909 Migraine, unspecified, not intractable, without status migrainosus; Z88.1 Allergy status to other antibiotic agents; Z91.013 Allergy to seafood; Z91.041 Radiographic dye allergy status; Z79.899 Other long term (current) drug therapy

== ENCOUNTER 2019-06-15 23:13 | Observation (INO) | payer OTHER ==
[~2019-06-15] VITALS: Ht 160 cm; Wt 67.4 kg
[~2019-06-15 23:13] MED LIST changes: -ACET1TAB55 PO; -AJOV225I SC; -AMIT-255 PO; -TOPI100T9 PO; -VIMP100T PO; -ZONI100C17 PO; +ZONI100C2 PO
[2019-06-16 00:17] LABS: BASO % 0.5 % (0.0-1.0); BLOOD UREA NITROGEN 11 MG/DL (7-18); CALCIUM LEVEL 8.2 MG/DL (8.5-10.1); CARBON DIOXIDE LEVEL 24 MEQ/L (21-32); CHLORIDE LEVEL 111 MEQ/L (98-107); EOS # 0.2 10^3/uL (0.0-0.5); EOS % 3.7 % (0.0-3.0); GLOMERULAR FILTRATION RATE > 60.0 (>58); GLUCOSE, FASTING 96 MG/DL (70-100); HEMATOCRIT 40.6 % (36.0-47.0); LYMPH # 2.1 10^3/uL (1.5-5.0); LYMPH % 48.5 % (24.0-44.0); MEAN CORPUSCULAR HEMOGLOBIN 30.4 pg (27.0-33.0); MEAN CORPUSCULAR VOLUME 95.1 fl (80.0-96.0); MONO # 0.4 10^3/uL (0.0-0.8); MONO % 9.6 % (0.0-5.0); NEUTROPHILS # 1.6 10^3/uL (1.5-8.5); NEUTROPHILS % 37.2 % (36.0-66.0); PLATELET COUNT, AUTOMATED 235 10^3/uL (150-450); POTASSIUM SERUM 3.3 MEQ/L (3.5-5.1); RED BLOOD COUNT 4.27 10^6/uL (4.00-5.40); SODIUM LEVEL 144 MEQ/L (136-145); WHITE BLOOD COUNT 4.4 10^3/uL (4.0-10.0)
[2019-06-16 00:21] LABS: INR 0.94; PROTHROMBIN TIME 12.2 SECONDS (11.8-14.0)
[2019-06-16 00:22] LABS: PARTIAL THROMBOPLASTIN TIME 26.4 SECONDS (25.0-38.4)
--- NOTE | 2019-06-16 00:40 | REPVR ---
PROCEDURE INFORMATION: Exam: CT Head Without Contrast Exam date and time: 06/15/2019 11:59 PM Age: 44 years old Clinical history: Condition or disease; Brain lesion; Prior surgery; Surgery date: <1 month; Surgery type: Craniotomy for meningioma; Additional info: Sync TECHNIQUE: Imaging protocol: Computed tomography of the head without contrast. Radiation optimization: All CT scans at this facility use at least one of these dose optimization techniques: automated exposure control; mA and/or kV adjustment per patient size (includes targeted exams where dose is matched to clinical indication); or iterative reconstruction. COMPARISON: CT Head without contrast 03/03/2018 1:36 PM FINDINGS: Brain: There is a low density subdural collection over the left frontal and temporal lobe extending into the left sylvian fissure. 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 There is some atrophic changes of the left temporal lobe secondary to previous insult and postoperative change. There is one small bubble of air within the subdural fluid collection and also some thickening of the dura at this location. This all is just below the left bone flap. Ventricles: The ventricles are normal in size. Bones/joints: There is a large craniotomy defect with a bone flap left frontal parietal junction. There are metallic screws securing this bone flap in place. According to history the patient had surgery less than 1 month ago for meningioma. Sinuses: Clear paranasal sinuses. Mastoid air cells: Clear mastoid air cells. Soft tissues: Unremarkable. Vasculature: There are several surgical clips along the medial edge of the left temporal lobe and abutting the left cavernous sinus region. IMPRESSION: 1. Craniotomy defect with a flap in place left temporal and frontal parietal region. 2. Surgical clips with postoperative changes along the medial left temporal lobe. 3. Low density subdural fluid collection left temporal lobe and left frontal lobe measuring 1.4 CM in greatest thickness. 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 A single bubble of air is identified. Findings were discussed with AC STOVALL at 06/16/2019 12:39 AM EST. Electronically signed by: Ranulfo Cortez On 06/16/2019 00:39:15 AM
[2019-06-16] MEDS ORDERED: NS 500 ML IV ONE (00:45)
[2019-06-16] MEDS ORDERED: IBUPROFEN 600 MG TAB PO ONE (01:00)
[2019-06-16] MEDS ORDERED: POTASSIUM CHLORIDE 10 MEQ SR TABLET PO ONE (01:45)
[2019-06-16] MEDS ORDERED: ACET1TAB55 PO (03:50)
[2019-06-16] MEDS ORDERED: VIMP100T PO (03:50)
[2019-06-16] MEDS ORDERED: AMIT-255 PO (03:50)
[2019-06-16] MEDS ORDERED: TOPI100T9 PO (03:50)
[2019-06-16] MEDS ORDERED: AJOV225I SC (03:50)
[2019-06-16] MEDS ORDERED: ACETAMINOPHEN TAB 650MG DOSE (2X325MG) PO PRN (04:45)
--- NOTE | 2019-06-16 04:56 | HPEPDOC ---
General Date of Admission Jun 15, 2019 at 23:14 Date of Service: Jun 16, 2019 Chief Complaint The patient is a 44-year-old female admitted with a reason for visit of Syncope. 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 According to patient around 6 PM she developed lightheadedness associated with dizziness and sweating after that she developed syncope for short period of time. Patient did not have any seizure-like activities, fecal or urinary incontinence. Patient did not have any recollection of this event. Patient stated that she didn't have good fluid intake due to severe jaw pain which she developed after surgery. Also patient stated she has been having headache. Of note patient has a history of severe migraine. In ER head CT was done and showed no intracranial bleeds, but low density subdural fluid collection left temporal lobe and left frontal lobe measuring 1.4 CM in greatest thickness. Patient denies fever, chills, nausea, vomiting, shortness of breath, palpitations diarrhea or dysuria Home Medications Scheduled Amitriptyline HCl (Amitriptyline HCl) 25 Mg Tablet, 25 MG PO QHS, (Reported) Fremanezumab-Vfrm (Ajovy) 225 Mg/1.5 Ml Syringe, 675 MG SC Q3M, (Reported) INJECTED IN BOTH SHOULDERS AND STOMACH; NEXT APPOINTMENT 06/20 Lacosamide (Vimpat) 100 Mg Tablet, 100 MG PO BID, (Reported) Magnesium Oxide (Magnesium) 400 Mg Cap, 400 MG PO DAILY, (Reported) Riboflavin (Vitamin B2) (Vitamin B-2) 100 Mg Tab, 200 MG PO DAILY, (Reported) Topiramate (Topiramate) 100 Mg Tablet, 100 MG PO QHS, (Reported) Scheduled PRN Acetaminophen (Acetaminophen) 325 Mg Tablet, 650 MG PO Q6H PRN for PAIN, (Reported) Allergies Coded Allergies: Contrast Media (Unverified Allergy, Severe, throat swelling, 08/13/18) doxycycline (Verified Allergy, Intermediate, upset stomach, 11/11/18) SEAFOOD (Unverified Allergy, Mild, 08/13/18) iodine (Verified Allergy, Unknown, 11/11/18) Past Medical History Medical History Meningioma, migraine Surgical History Meningioma resection Family History Mother had COPD and asthma, father had COPD Social History * Smoker: Denies Alcohol: Denies Drugs: denies A-FIB/CHADSVASC A-FIB History Current/History of A-Fib/PAF?: No Current PO Anticoag Therapy: No Review of Systems Constitutional: Denies: Chills, Fever Eyes: Reports: Vision change; Denies: Pain, Conjunctivae inflammation ENT: Reports: Head Aches Skin: Denies: Rash Pulmonary: Denies: Dyspnea, Cough Cardiovascular: Denies: Chest Pain, Palpitations Gastrointestinal: Denies: Nausea, Vomiting Genitourinary: Denies: Dysuria, Frequency Hematologic: Denies: Bruising, Bleeding Excessively Endocrine: Denies: Polydipsia, Polyphagia Musculoskeletal: Denies: Neck Pain, Back Pain Neurological: Reports: Weakness Psych: Reports: Mood Normal Physical Examination General Exam: Positive: Alert, Cooperative Eye Exam: Positive: Ptosis (left-sided); Negative: PERRLA (patient has left-sided ptosis, left-sided midriasis) ENT Exam: Positive: Atraumatic Neck Exam: Positive: Supple; Negative: JVD Chest Exam: Positive: Clear to auscultation Heart Exam: Positive: Rate Normal Telemetry: Positive: No significant arrhythmia Abdomen Exam: Positive: Normal bowel sounds Extremity Exam: Negative: Clubbing, Cyanosis Skin Exam: Positive: Nl turgor and temperature Neuro Exam: Positive: Normal Gait, Normal Speech, Strength at 5/5 X4 ext; Negative: Cranial Nerves 3-12 NL (deficiency of cranial nerve III and 5 on the left side) Psych Exam: Positive: Mental status NL Vital Signs Vital Signs Date Time Temp Pulse Resp B/P (MAP) Pulse Ox O2 Delivery O2 Flow Rate FiO2 06/16/19 03:30 71 95/54 (68) 97 Room Air 06/15/19 23:22 98.2 18 Laboratory Data Labs 24H Laboratory Tests 2 06/15/19 23:27: Immature Granulocyte % (Auto) 0.5, Neutrophils (%) (Auto) 37.2, Lymphocytes (%) (Auto) 48.5H, Monocytes (%) (Auto) 9.6H, Eosinophils (%) (Auto) 3.7H, Basophils (%) (Auto) 0.5, Neutrophils # (Auto) 1.6, Lymphocytes # (Auto) 2.1, Monocytes # (Auto) 0.4, Eosinophils # (Auto) 0.2, Basophils # (Auto) 0.0, Nucleated Red Blood Cells % (auto) 0.0, Prothrombin Time 12.2, Prothromb Time International Ratio 0.94, Activated Partial Thromboplast Time 26.4, Anion Gap 9, Glomerular Filtration Rate > 60.0, Calcium Level 8.2L 06/16/19 00:16: Bedside Glucose (Misc Panel) 85 CBC/BMP Laboratory Tests 06/15/19 23:27 Assessment/Plan Patient is 44 years old female with past medical history of migraine, status post 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 According to patient around 6 PM she developed lightheadedness associated with dizziness and sweating after that she developed syncope for short period of time. Problems (1) Syncope Status: Acute Problem Text: Most likely vasovagal due to dehydration. Patient does not have any new neurological deficiency since cranial surgery. CT head was negative for intracranial bleeds, however it shows low density subdural fluid collection left temporal lobe and left frontal lobe measuring 1.4 CM in greatest thickness. 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 There is concern that patient's symptoms best sated with subdural hematoma and increased intracranial pressure. Dr. Buck called to [facility] in order to transfer patient, however bed available for now Consider neurological consult due to complicated medical history IV fluid Plan / VTE VTE Prophylaxis Ordered?: Yes QUENTIN ALFARO DO Jun 16, 2019 04:56
[2019-06-16 06:28] VITALS: BP 98/59
[2019-06-16] MEDS: NS 1,000 ML IV SCH ×2 (06:54→13:00)
[2019-06-16] MEDS: LACOSAMIDE 50 MG TAB (VIMPAT) PO SCH ×2 (09:02→20:00)
[2019-06-16] MEDS: HEPARIN SOD (PORCINE) 5000 UNITS/ML VIAL SC SCH ×2 (09:02→20:00)
[2019-06-16 11:00] VITALS: BP_SYST 109; BP_SYST 111; BP_SYST 96; BP_DIAS 54; BP_DIAS 55
[2019-06-16] MEDS ORDERED: ACETAMINOPHEN 500 MG TAB PO PRN (14:00)
[2019-06-16] MEDS: MORPHINE 2 MG/ML 1ML VIAL (J2270) IV PRN ×2 (14:56→23:08)
--- NOTE | 2019-06-16 15:03 | ECGEPIP ---
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
[2019-06-16 16:00] VITALS: BP 102/72
--- NOTE | 2019-06-16 16:33 | REP ---
MRI brain: 06/16/2019. Indication: Syncope. Comparison: CT brain completed earlier today. Technique: Multiplanar short and long TR sequences of the brain were performed without IV Gadolinium. Findings: Left pterional craniotomy is present. There are no areas of restricted diffusion. There is no intracranial mass effect or hydrocephalous. No significant signal abnormalities are present within the brainstem or brain parenchyma. The large intracranial flow voids are unremarkable. Susceptibility artifact in the region of the supraclinoid left ICA is present consistent with the surgical clip. The midline structures, and craniocervical junction are unremarkable. Impression: No acute intracranial process. Postoperative sequelae on the left. Electronically Signed by Esvin Malcolm DO 06/16/2019 04:24 P
[2019-06-16] MEDS: IBUPROFEN 600 MG TAB PO PRN (19:57)
[2019-06-16 20:00] VITALS: BP 112/80
[2019-06-16] MEDS ORDERED: TOPIRAMATE (TopAMAX) 100 MG TAB PO SCH (21:00)
[2019-06-16] MEDS ORDERED: AMITRIPTYLINE 25 MG TAB PO SCH (21:00)
[2019-06-17] VITALS: BP 90/54
[2019-06-17] MEDS: NS 1,000 ML IV SCH ×2 (00:17→04:36)
[2019-06-17 04:00] VITALS: BP 88/58
[2019-06-17] MEDS: IBUPROFEN 600 MG TAB PO PRN ×2 (04:30→10:48)
[2019-06-17] MEDS ORDERED: NS 250 ML IV ONE (04:45)
[2019-06-17 05:34] LABS: HEMATOCRIT 31.7 % (36.0-47.0); MEAN CORPUSCULAR HEMOGLOBIN 30.4 pg (27.0-33.0); MEAN CORPUSCULAR HGB CONC 31.9 g/dl (32.0-36.5); MEAN CORPUSCULAR VOLUME 95.5 fl (80.0-96.0); PLATELET COUNT, AUTOMATED 170 10^3/uL (150-450); RED BLOOD COUNT 3.32 10^6/uL (4.00-5.40); WHITE BLOOD COUNT 3.8 10^3/uL (4.0-10.0)
[2019-06-17 05:44] LABS: HEMOGLOBIN 10.1 g/dl (12.0-15.5)
[2019-06-17 06:00] LABS: BLOOD UREA NITROGEN 3 MG/DL (7-18); CALCIUM LEVEL 7.7 MG/DL (8.5-10.1); CARBON DIOXIDE LEVEL 25 MEQ/L (21-32); CHLORIDE LEVEL 115 MEQ/L (98-107); CREATININE FOR GFR 0.58 MG/DL (0.55-1.30); GLOMERULAR FILTRATION RATE > 60.0 (>58); GLUCOSE, FASTING 81 MG/DL (70-100); MAGNESIUM LEVEL 1.7 MG/DL (1.8-2.4); POTASSIUM SERUM 3.4 MEQ/L (3.5-5.1); SODIUM LEVEL 144 MEQ/L (136-145)
[2019-06-17 08:00] VITALS: BP 101/42
[2019-06-17] MEDS: LACOSAMIDE 50 MG TAB (VIMPAT) PO SCH (08:29)
[2019-06-17] MEDS: HEPARIN SOD (PORCINE) 5000 UNITS/ML VIAL SC SCH (08:30)
[2019-06-17] MEDS ORDERED: MAGNESIUM OXIDE 400 MG TAB (MAG-OX) PO SCH (09:00)
[2019-06-17] MEDS ORDERED: VITAMIN B COMPLEX/VIT C CAP PO SCH (09:00)
[2019-06-17] MEDS: MAG SULF 1GM/100ML (MAG RUN) 1 GM in IV 1 EA IV SCH ×2 (09:35→10:48)
[2019-06-17] MEDS: POTASSIUM CHLORIDE 10 MEQ SR TABLET PO SCH ×2 (09:35→13:05)
[2019-06-17 11:00] VITALS: BP_SYST 121; BP_SYST 125; BP_SYST 128; BP_DIAS 66; BP_DIAS 70; BP_DIAS 74
--- NOTE | 2019-06-17 12:29 | DS.PDOC ---
Discharge Summary General Date of Admission Jun 15, 2019 at 23:14 Date of Discharge 06/17/2019 Attending Physician: HELADIO MANNING MD Discharge Summary PROCEDURES PERFORMED DURING STAY: None. ADMITTING DIAGNOSES: 1. Syncope. DISCHARGE DIAGNOSES: 1. Syncope. COMPLICATIONS/CHIEF COMPLAINT: Syncope. HISTORY OF PRESENT ILLNESS: 44-year-old female with past medical history of men ingioma status post surgical resection one month ago, was admitted for syncope. Patient found to be orthostatic in the hospital, due to dehydration as her oral intake has been poor the past few days to weeks. Patient was given IV hydration with normal saline with significant improvement in symptoms, evaluate by physical therapy who cleared her for discharge home. Given patient's recent meningioma resection with subsequent weakness in the lower extremities. PT recommended a rolling walker and home physical therapy/OT. Patient will require the services as she has acutely decompensated due to her neurological intervention. Patient encouraged to stay hydrated, increase salt intake, will start with these conservative measures initially and not improving, can consider medication in the future. Patient must follow with neurologist, neurosurgeon and PCP in 1-2 weeks. Patient is tolerating diets, currently without any complaints, clinically stable for discharge. HOSPITAL COURSE: As above. DISCHARGE MEDICATIONS: Please see below. ALLERGIES: Please see below. PHYSICAL EXAMINATION: VITAL SIGNS: Please see below. GENERAL: No distress HEENT: Surgical scar noted on left frontal/temporal side, has ptosis on the left side, left pupil not reacting to light NECK: Supple CARDIOVASCULAR EXAMINATION: S1, S2, no murmurs RESPIRATORY EXAMINATION: Clear to auscultation, no wheezing ABDOMINAL EXAMINATION: Soft, nontender, nondistended, positive bowel sounds EXTREMITIES: No edema SKIN: No rash NEUROLOGICAL EXAMINATION: Alert and oriented 3, right lower extremity weakness PSYCHIATRIC EXAMINATION: Calm and cooperative LABORATORY DATA: Please see below. IMAGING: CT and MRI negative for acute pathology PROGNOSIS: Fair ACTIVITY: As tolerated. DIET: Regular DISCHARGE PLAN: Patient with follow-up neurologist, neurosurgeon and PCP in 1-2 weeks DISPOSITION: Home. DISCHARGE INSTRUCTIONS: 1. As above. DISCHARGE CONDITION: Stable. TIME SPENT ON DISCHARGE: Greater than 32 minutes. Vital Signs/I&Os Vital Signs Date Time Temp Pulse Resp B/P (MAP) Pulse Ox O2 Delivery O2 Flow Rate FiO2 06/17/19 11:00 88 121/66 (84) 104 125/70 (88) 128/74 (92) 06/17/19 08:00 97.0 18 98 Room Air I&O- Last 24 Hours up to 6 AM 06/17/19 06:00 Intake Total 2585 ml Output Total 1350 ml Balance 1235 ml Laboratory Data Labs 24H Laboratory Tests 2 06/17/19 05:13: Nucleated Red Blood Cells % (auto) 0.0, Anion Gap 4L, Glomerular Filtration Rate > 60.0, Calcium Level 7.7L, Magnesium Level 1.7L CBC/BMP Laboratory Tests 06/17/19 05:13 Discharge Medications Scheduled Amitriptyline HCl (Amitriptyline HCl) 25 Mg Tablet, 25 MG PO QHS, (Reported) Fremanezumab-Vfrm (Ajovy) 225 Mg/1.5 Ml Syringe, 675 MG SC Q3M, (Reported) INJECTED IN BOTH SHOULDERS AND STOMACH; NEXT APPOINTMENT 06/20 Lacosamide (Vimpat) 100 Mg Tablet, 100 MG PO BID, (Reported) Magnesium Oxide (Magnesium) 400 Mg Cap, 400 MG PO DAILY, (Reported) Riboflavin (Vitamin B2) (Vitamin B-2) 100 Mg Tab, 200 MG PO DAILY, (Reported) Topiramate (Topiramate) 100 Mg Tablet, 100 MG PO QHS, (Reported) Scheduled PRN Acetaminophen (Acetaminophen) 325 Mg Tablet, 650 MG PO Q6H PRN for PAIN, (Reported) Allergies Coded Allergies: Contrast Media (Unverified Allergy, Severe, throat swelling, 08/13/18) doxycycline (Verified Allergy, Intermediate, upset stomach, 11/11/18) SEAFOOD (Unverified Allergy, Mild, 08/13/18) iodine (Verified Allergy, Unknown, 11/11/18) HELADIO MANNING MD Jun 17, 2019 12:29
== END 2019-06-17 16:05 | disposition home health service (06) ==
LOC: M ED 23:13 → M ED INP 23:14 → M MS4PR 06-16 06:28 → M PCU 06-16 16:05
PROVIDERS: ADMIT Internal Medicine; ATTEND Internal Medicine
DX: R55 Syncope and collapse (principal); Z98.890 Other specified postprocedural states; Z86.011 Personal history of benign neoplasm of the brain; E86.0 Dehydration; R93.0 Abnormal findings on diagnostic imaging of skull and head, not elsewhere classified; R53.1 Weakness; G43.909 Migraine, unspecified, not intractable, without status migrainosus; R68.84 Jaw pain; K21.9 Gastro-esophageal reflux disease without esophagitis; Z86.19 Personal history of other infectious and parasitic diseases; Z79.899 Other long term (current) drug therapy; Z91.041 Radiographic dye allergy status; Z88.1 Allergy status to other antibiotic agents; Z91.013 Allergy to seafood
CPT/HCPCS: 36415; 70450; 70551; 80048; 83735; 85025; 85027; 85610; 85730; 93005; 96361; 96372; 96374; 96376; 97161; 97165; 97530; 99285; J2270; J3475

== ENCOUNTER 2019-06-20 15:30 | Emergency (ER) | payer OTHER ==
[~2019-06-20] VITALS: Ht 160 cm; Wt 64.5 kg
[~2019-06-20 15:30] MED LIST changes: +ACET1TAB55 PO; +AJOV225I SC; +AMIT-255 PO; +TOPI100T9 PO; +VIMP100T PO
[2019-06-20] MEDS ORDERED: NS 1,000 ML IV ONE (16:45)
[2019-06-20 17:39] LABS: ALBUMIN 3.1 GM/DL (3.2-5.2); ALT/SGPT 27 U/L (12-78); BILIRUBIN,TOTAL 0.2 MG/DL (0.2-1.0); BLOOD UREA NITROGEN 6 MG/DL (7-18); CALCIUM LEVEL 8.4 MG/DL (8.5-10.1); CARBON DIOXIDE LEVEL 26 MEQ/L (21-32); CHLORIDE LEVEL 112 MEQ/L (98-107); CREATININE FOR GFR 0.66 MG/DL (0.55-1.30); GLOMERULAR FILTRATION RATE > 60.0 (>58); GLUCOSE, FASTING 109 MG/DL (70-100); MAGNESIUM LEVEL 1.9 MG/DL (1.8-2.4); SODIUM LEVEL 144 MEQ/L (136-145); TOTAL PROTEIN 6.3 GM/DL (6.4-8.2)
[2019-06-20 17:42] LABS: BASO % 0.7 % (0.0-1.0); EOS # 0.1 10^3/uL (0.0-0.5); EOS % 2.9 % (0.0-3.0); HEMOGLOBIN 12.6 g/dl (12.0-15.5); LYMPH # 1.8 10^3/uL (1.5-5.0); LYMPH % 39.3 % (24.0-44.0); MEAN CORPUSCULAR HEMOGLOBIN 30.8 pg (27.0-33.0); MEAN CORPUSCULAR HGB CONC 32.3 g/dl (32.0-36.5); MEAN CORPUSCULAR VOLUME 95.4 fl (80.0-96.0); MONO # 0.4 10^3/uL (0.0-0.8); MONO % 9.8 % (0.0-5.0); NEUTROPHILS # 2.1 10^3/uL (1.5-8.5); NEUTROPHILS % 46.9 % (36.0-66.0); PLATELET COUNT, AUTOMATED 255 10^3/uL (150-450); RED BLOOD COUNT 4.09 10^6/uL (4.00-5.40); WHITE BLOOD COUNT 4.5 10^3/uL (4.0-10.0)
[2019-06-20 18:58] VITALS: BP 105/51
[2019-06-20] MEDS ORDERED: ACETAMINOPHEN TAB 650MG DOSE (2X325MG) PO ONE (19:00)
== END 2019-06-20 19:08 | disposition home or self-care (01) ==
LOC: M ED 15:30
DX: R19.7 Diarrhea, unspecified (principal); I95.9 Hypotension, unspecified; I10 Essential (primary) hypertension; R56.9 Unspecified convulsions; R51 Headache; Z86.011 Personal history of benign neoplasm of the brain; Z91.041 Radiographic dye allergy status; Z91.013 Allergy to seafood; Z88.1 Allergy status to other antibiotic agents; Z88.8 Allergy status to other drugs, medicaments and biological substances; Z79.899 Other long term (current) drug therapy

== ENCOUNTER 2019-07-15 14:21 | Emergency (ER) | payer OTHER ==
[~2019-07-15] VITALS: Ht 160 cm; Wt 63.6 kg
[2019-07-15 14:22] VITALS: BP 106/68
[2019-07-15] MEDS ORDERED: IBUPROFEN 600 MG TAB PO ONE (15:45)
--- NOTE | 2019-07-15 16:07 | REP ---
HISTORY: Pain and swelling. COMPARISON: None. TECHNIQUE: Multiple ultrasonographic images of the deep venous structures of the right thigh were obtained from the common femoral vein to the popliteal vein along with Doppler interrogation and color flow Doppler images. FINDINGS: There is no abnormal echogenic material seen within any of the visualized deep venous structures that would suggest acute thrombosis. Coaptation is unremarkable throughout. Doppler interrogation shows an expected response to respiratory variability and augmentation. The color flow images show what appears to be a normal vascular pattern throughout. IMPRESSION: There is no ultrasonographic evidence of deep venous thrombosis involving any of the visualized deep venous structures of the right thigh, as described above. Electronically Signed by Caden Crow DO 07/15/2019 04:22 P
== END 2019-07-15 16:36 | disposition home or self-care (01) ==
LOC: M ED 14:21
DX: S86.111A Strain of other muscle(s) and tendon(s) of posterior muscle group at lower leg level, right leg, initial encounter (principal); X58.XXXA Exposure to other specified factors, initial encounter; Y92.018 Other place in single-family (private) house as the place of occurrence of the external cause; Z88.1 Allergy status to other antibiotic agents; Z88.8 Allergy status to other drugs, medicaments and biological substances; Z91.018 Allergy to other foods; Z91.041 Radiographic dye allergy status

== ENCOUNTER → 2019-08-18 | Outpatient (CLI) | payer OTHER ==
[~2019-08-18] MED LIST changes: +ZONI100C17 PO; -ZONI100C2 PO
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
== END ==
LOC: M PAIN 08:45
PROVIDERS: ATTEND Nurse Practitioner Family
DX: M25.512 Pain in left shoulder (principal); M79.18 Myalgia, other site

== ENCOUNTER → 2019-09-08 | Outpatient (CLI) | payer OTHER ==
[~2019-09-08] MED LIST changes: +BUPIVACAINE HCL 0.25% 30 ML VIAL As Ordered ONE; +TRIAMCINOLONE ACETONIDE SUSP 40 MG/ML VIAL (J3301) As Ordered ONE
--- NOTE | 2019-09-27 04:30 | ECWPNPC ---
PATIENT NAME: JONE HATFIELD : 1975 GENDER: FEMALE VISIT DATE: 09/08/2019 DISCHARGE DATE: 09/08/19 1615 VISIT LOCKED DATE TIME: PHYSICIAN: MARY HILL MD RESOURCE: MARY HILL MD REASON FOR APPOINTMENT 1. TPI HISTORY OF PRESENT ILLNESS HISTORY OF PRESENT ILLNESS: PAIN THE PATIENT DESCRIBES THE PAIN... FALL RISK SCREENING: SCREENING :NO FALLS REPORTED IN THE LAST YEAR CURRENT MEDICATIONS TAKING PENNSAID 2 % SOLUTION 2 PUMPS TO AFFECTED AREA LEFT SHOULDER TRANSDERMAL TWICE A DAY NEEDED FOR PAIN, NOTES: NO USED IN AWHI;E TAKING MAGNESIUM 200 MG TABLET 2 CAPSULE WITH A MEAL ORALLY ONCE A DAY, NOTES: 09-07-19 183 TAKING VITAMIN B-2 100 MG TABLET 2 TABLET ORALLY ONCE A DAY, NOTES: 09-08-19 0630 TAKING ACETAMINOPHEN 500 MG TABLET 2 TABLET ORALLY EVERY 8 HRS NEEDED, NOTES: 09-08-19 1400 TAKING AMITRIPTYLINE HCL 25 MG TABLET 1 TABLET AT BEDTIME ORALLY ONCE A DAY, NOTES: 09-07-190 TAKING TOPIRAMATE 100 MG TABLET 1 TABLET ORALLY ONCE A DAY, NOTES: 09-08-19 1030 TAKING AJOVY 225 MG/1.5ML SOLUTION PREFILLED SYRINGE 1.5 ML SUBCUTANEOUS , NOTES: 1 MONTH AGO TAKING IBU-200 200 MG TABLET 3 TABLETS WITH FOOD OR MILK NEEDED ORALLY THREE TIMES A DAY, NOTES: 09-08-19 103 NOT-TAKING TESSALON PERLES 100 MG CAPSULE 1 CAPSULE NEEDED ORALLY THREE TIMES A DAY, NOTES: LONG TIME AGO NOT-TAKING ZONISAMIDE 100 MG CAPSULE 1 CAPSULE ORALLY BEFORE BEDTIME NOT-TAKING NORTRIPTYLINE HCL 25 MG CAPSULE 1 CAPSULE ORALLY BEFORE BEDTIME NOT-TAKING CYMBALTA 30 MG CAPSULE DELAYED RELEASE PARTICLES 1 CAPSULE WITH FOOD ORALLY FOR PAIN BID MDD2 NOT-TAKING TIZANIDINE HCL 2 MG TABLET 1 TABLET NEEDED ORALLY FOR SPASMS AND PAIN BEFORE BEDTIME MAY REPEAT IN 4 HRS MDD2 NOT-TAKING IBUPROFEN 800 MG TABLET 1 TABLET WITH FOOD OR MILK NEEDED ORALLY EVERY 8 HOURS NEEDED NOT-TAKING OXYCODONE HCL 5 MG TABLET 1 TABLET ORALLY EVERY 4 HRS NEEDED MEDICATION LIST REVIEWED AND RECONCILED WITH THE PATIENT PAST MEDICAL HISTORY PEDAL EDEMA TRYPANOSOMA CRUZI EPISODES OF DIZZINESS NECK PAIN REFLUX LYME DISEASE 2010 MIGRAINE LEFT SHOULDER PAIN CONCUSSION BRAIN TUMOR ALLERGIES DOXYCYCLINE: RASH - ALLERGY IVP DYE: ANAPHYLAXIS - ALLERGY SEAFOOD: ANAPHYLAXIS - ALLERGY SURGICAL HISTORY CYST REMOVED ON THROAT 1975 TONSILLECTOMY 1980 LEFT KNEE SURGERY 1989 APPENDECTOMY 1999 HYSTERECTOMY 2014 GALL BLADDER 2016 LEFT SHOULDER REPAIR 08/18/18 LEFT SHOULDER SURGERY - REPAIR TORN LABRUM 11/25/18 BRAIN SURGERY 05/19/2019 FAMILY HISTORY FATHER: ALIVE, COPD, ASTHMA MOTHER: ALIVE, DDD, COPD, EMPHYSEMA, ASTHMA SIBLINGS: ALIVE, BROTHER- ASTHMA. LEAKY MITRAL VALVE SON(S): ALIVE DAUGHTER(S): ALIVE PATERNAL UNCLE: 1 SON(S) , 1 DAUGHTER(S) - HEALTHY. UNCLE - [place]. SOCIAL HISTORY GENERAL: TOBACCO USE ARE YOU A:NONSMOKER OTHERS AT HOME: SPOUSE, 3 CHILDREN. EDUCATION LEVEL OF EDUCATION:HIGH SCHOOL DIET: REGULAR. LANGUAGE LANGUAGES SPOKEN:CHINESE DOMESTIC VIOLENCE DO YOU FEEL SAFE IN YOUR ENVIRONMENT?YES RECREATIONAL DRUG USE DRUG USE?NO EXERCISE: NO REGULAR EXERCISE. PAIN CLINIC PFS, CLERGY, PUBLIC HEALTH REFERRALS PFS REFERRAL NEEDED?NO CLERGY REFERRAL NEEDED?NO PUBLIC HEALTH REFERRAL NEEDED?NO WAS THE PROVIDER NOTIFIED OF ANY PERTINENT INFO?YES N/A HAS THE PATIENT BEEN EDUCATED REGARDING HIS/HER PLAN OF CARE?YES HAS THE PATIENT BEEN EDUCATED REGARDING PAIN, THE RISK FOR PAIN, THE IMPORTANCE OF EFFECTIVE PAIN MANAGEMENT, AND THE PAIN ASSESSMENT PROCESS?YES LATEX QUESTIONNAIRE LATEX ALLERGY : HAVE YOU EVER DEVELOPED ANY TYPE OF REACTION AFTER HANDLING LATEX PRODUCTS SUCH RUBBER GLOVES, CONDOMS, DIAPHRAGMS, BALLOONS, SOCKS, OR UNDERWEAR?NO LATEX ALLERGY : HAVE YOU EVER DEVELOPED ANY TYPE OF REACTION DURING OR AFTER DENTAL APPOINTMENT, VAGINAL/RECTAL EXAMINATION, SURGICAL PROCEDURE, OR ANY OTHER EXPOSURE?NO DATE ASKED : 04/18/2019 LATEX RISK : HAVE YOU EVER HAD ANY DIFFICULTY BREATHING OR HIVES AFTER EATING OR HANDLING ANY FRUITS, OR VEGETABLES; SUCH KIWI, BANANAS, STONE FRUITS, OR CHESTNUTSNO LATEX RISK : DO YOU HAVE A PREVIOUS PERSONAL HISTORY OF MORE THAN NINE SURGERIES, SPINA BIFIDA, OR REPEATED CATHERIZATIONS? YES - PLEASE INDICATE : > 9 SURGERIES LATEX RISK : ARE YOU FREQUENTLY EXPOSED TO LATEX PRODUCTS IN YOUR OCCUPATION?NO CAFFEINE CAFFEINE USE?YES 2 CUPS DAILY ADVANCE DIRECTIVE ADVANCE DIRECTIVE DISCUSSED WITH PATIENT:YES 08/18/2019 PT DOES NOT HAVE ANY ADVANCED DIRECTIVES AND SHE DECLINES INFORMATION ON HCP AT THIS TIME. JS ADVENTISM ADVENTISM NO PREFERENCE MARITAL STATUS: . ALCOHOL SCREENING DID YOU HAVE A DRINK CONTAINING ALCOHOL IN THE PAST YEAR?NO POINTS0 INTERPRETATIONNEGATIVE OCCUPATION: DOES NOT WORK. 08/26/18 REVIEWED WITH PT. GALDINO WITH PATIENT 11/19/18 0907 JSREVIEWED WITH PATIENT 08/18/2019 0906 JS. HOSPITALIZATION/MAJOR DIAGNOSTIC PROCEDURE SURGERY RELATED 1975 SURGERY RELATED 1980 SURGERY RELATED 1989 CHILD 1998 SURGERY RELATED 1999 CHILD 2003 LYME DISEASE 2010 COMPLICATED MIGRAINE 2013 HYSTERECTOMY 2014 SURGERY RELATED 04/2019 DEHYDRATION/LOSS OF CONSCIOUSNESS 05/2019 REVIEW OF SYSTEMS REVIEWED BY: PROVIDER: . CONSTITUTIONAL: ANY CHANGE IN YOUR MEDICAL CONDITION? NO . CHILLS NO . FEVER NO . INFECTION: DO YOU HAVE NEW INFECTIONS? NO . DO YOU HAVE HISTORY OF MRSA? NO . MUSCULOSKELETAL: ANY NEW PATTERNS OF PAIN OR NUMBNESS? NO . GASTROENTEROLOGY: ANY NEW CHANGE IN BOWEL CONTROL? YES . GENITOURINARY: ANY NEW CHANGE IN BLADDER CONTROL? NO . IS THERE A CHANCE YOU COULD BE ? NO . HEMATOLOGY/LYMPH: DO YOU TAKE ANY BLOOD THINNERS? (FOR EXAMPLE- COUMADIN, PLAVIX, AGGRENOX, PLATEL, PRADAXA, OR XARELTO) NO . WHEN WAS YOUR LAST DOSE? DATE: TIME: . NEUROLOGY: HAVE YOU FALLEN IN THE PAST 12 MONTHS? NO . ANY NEW EXTREMITY NUMBNESS OR WEAKNESS? NO . CARDIOLOGY: DO YOU HAVE A PACEMAKER OR DEFIBRILLATOR? NO . RESPIRATORY: HAVE YOU BEEN SICK IN THE PAST WEEK? NO . FEVER NO . FLU LIKE SYMPTOMS? NO . COUGH NO . INTEGUMENTARY: DO YOU HAVE ANY RASHES OR OPEN SORES? NO . ALLERGIC/IMMUNO: ARE YOU ALLERGIC TO IV DYE? YES . ANY NEW ALLERGIES? NO . PSYCHIATRIC: DO YOU HAVE THOUGHTS OF HURTING YOURSELF OR SOMEONE ELSE? NO . ARE YOU ABUSED, NEGLECTED, OR IN AN UNSAFE ENVIRONMENT? NO . ENDOCRINOLOGY: ARE YOU DIABETIC? NO . OTHER: DO YOU NEED ANY PRESCRIPTIONS? NO . IF YES, PLEASE LIST: ____ . ANY NEW PROBLEMS WITH YOUR MEDICATIONS? NO . WHEN DID YOU LAST EAT? ____09/07/19 8 30 PM . WHEN DID YOU LAST DRINK? ____09/08/19 830 AM . WHAT DID YOU LAST DRINK? ____WATER . NAME OF PERSON DRIVING YOU HOME? ____PATRICK . DO YOU HAVE ANY OTHER QUESTIONS OR CONCERNS NO . VITAL SIGNS WT 147.0 LBS, HT 63 IN, BMI 26.04 INDEX, BP 113/56 MM HG, HR 67 /MIN, RR 16 /MIN, TEMP 97.0 F, OXYGEN SAT % 100%, SAFE IN ENV? (Y/N) YES, NA INITIALS AW 1433, REVIEWED BY: KG. ASSESSMENTS MYALGIA, OTHER SITE - M79.18 (PRIMARY) PROCEDURES PN TRIGGER POINT INJECTION WITH STEROIDS PRE PROCEDURE DIAGNOSIS 1. MYALGIA 2. PAIN AT LEFT SHOULDER AREA. POST PROCEDURE DIAGNOSIS 1. MYALGIA 2. PAIN AT LEFT SHOULDER AREA. PROCEDURE TRIGGER POINT INJECTION AT LEFT SHOULDER AREA. SURGEON DR. MARY HILL HEAD AND NECK SURGEON NONE ANESTHESIA LOCAL PRE PROCEDURE NOTE THE PATIENT HAS A HISTORY OF CHRONIC PAIN AT THE LEFT SHOULDER AREA. I EVALUATE THE PATIENT AND REVIEWED THE CHART. THERE IS EVIDENCE OF BANDS OF TISSUE WITH RESTRICTION OF MOVEMENT AND PRESENCE OF TRIGGER POINT AT THE AFFECTED AREA. I WENT OVER THE RISKS, ALTERNATIVES, AND BENEFITS ASSOCIATED WITH THIS PROCEDURE. THE PATIENT WOULD LIKE TO PROCEED AND GIVE CONSENT TO PERFORMED THE PROCEDURE. THE PATIENT DENIES UNEXPLAINABLE WEIGHT LOSS, FEVER, CHILLS, OR NEW CHANGES IN URINARY OR BOWEL CONTROL DESCRIPTION OF PROCEDURE THE PATIENT WAS BROUGHT TO THE PROCEDURE ROOM AND PLACED IN THE SITTING POSITION. THE AREA WAS CLEANED WITH ALCOHOL. THE PROCEDURE WAS DONE USING ASEPTIC STERILE TECHNIQUE. I CHECKED LATERALITY AND THE LEVEL WHERE THE PROCEDURE WAS GOING TO BE PERFORMED WITH THE PATIENT AND THE SUPPORTING STAFF AT THE MOMENT OF THE TIME OUT IN THE PROCEDURE ROOM. USING A 25-GAUGE NEEDLE, TRIGGER POINTS WERE INJECTED AT THE LEFT SHOULDER AREA WITH A TOTAL OF 40 ML OF BUPIVACAINE 0.25% AND KENALOG 40 MG. THERE WAS NO EVIDENCE OF BLOOD, PARESTHESIA OR CEREBROSPINAL FLUID DURING THE PROCEDURE. THE PATIENT WAS SENT TO THE RECOVERY ROOM. THE PATIENT WAS MOVING THE EXTREMITIES AND DOING WELL. THERE WAS NO COMPLICATION DURING THE PROCEDURE POST PROCEDURE NOTE THE PATIENT WILL BE SEEN IN A FOLLOW UP IN THE NEXT FEW WEEKS. INSTRUCTIONS WERE GIVEN, QUESTIONS WERE ANSWERED, AND THE PATIENT EXPRESSED UNDERSTANDING AND AGREES WITH THE PLAN. I, MONROE GARCIA, DOCUMENTED THE ABOVE INFORMATION ACTING A SCRIBE FOR DR. HILL. I HAVE REVIEWED THE ABOVE DOCUMENT, WRITTEN BY MONROE OTTO AND I VERIFY THAT IT IS ACCURATE. PROCEDURE CODES 88781 INJ TRIGGER POINT 1/2 MUSC DISPOSITION & COMMUNICATION FOLLOW UP 3 WEEKS ELECTRONICALLY SIGNED BY MARY HILL MD, MD ON 09/26/2019 AT 11:00 AM EST DISCLAIMER : THIS IS A VISIT SUMMARY EXTRACTED FROM THE THE [facility] CHART. IT IS NOT A COPY OF THE THE [facility] PROGRESS NOTE. SANTA
== END ==
LOC: M PAIN 14:30
PROVIDERS: ATTEND Anesthesiology
DX: M79.18 Myalgia, other site (principal)
CPT/HCPCS: 20552; J3301

== ENCOUNTER → 2019-09-19 | Outpatient (CLI) | payer OTHER ==
[~2019-09-19] MED LIST changes: -BUPIVACAINE HCL 0.25% 30 ML VIAL As Ordered ONE; -TRIAMCINOLONE ACETONIDE SUSP 40 MG/ML VIAL (J3301) As Ordered ONE
--- NOTE | 2019-09-21 00:58 | ECWPNPC ---
PATIENT NAME: JONE HATFIELD : 1975 GENDER: FEMALE VISIT DATE: 09/19/2019 DISCHARGE DATE: 09/19/19 1138 VISIT LOCKED DATE TIME: PHYSICIAN: JANNET CHERY RESOURCE: JANNET CHERY REASON FOR APPOINTMENT 1. POST TPI HISTORY OF PRESENT ILLNESS HISTORY OF PRESENT ILLNESS: HERE FOR POST PROCEDURE FOLLOW-UP. HAD, TRIGGER POINT INJECTIONS, LEFT SHOULDER 09/08/2019. REPORTING SIGNIFICANT IMPROVEMENT IN PAIN. REPORTS IMPROVED MOBILITY. ATTENDING PHYSICAL THERAPY. RATING PAIN LEVEL A 2-3/10 VAS. PAIN THE PATIENT DESCRIBES THE PAIN... FALL RISK SCREENING: SCREENING :NO FALLS REPORTED IN THE LAST YEAR CURRENT MEDICATIONS TAKING PENNSAID 2 % SOLUTION 2 PUMPS TO AFFECTED AREA LEFT SHOULDER TRANSDERMAL TWICE A DAY NEEDED FOR PAIN, NOTES: NO USED IN AWHI;E TAKING MAGNESIUM 200 MG TABLET 2 CAPSULE WITH A MEAL ORALLY ONCE A DAY, NOTES: 09-07-19 183 TAKING VITAMIN B-2 100 MG TABLET 2 TABLET ORALLY ONCE A DAY, NOTES: 09-08-19 0630 TAKING ACETAMINOPHEN 500 MG TABLET 2 TABLET ORALLY EVERY 8 HRS NEEDED, NOTES: 09-08-19 1400 TAKING AMITRIPTYLINE HCL 50 MG TABLET 1 TABLET AT BEDTIME ORALLY ONCE A DAY, NOTES: 09-07-192229 TAKING TOPIRAMATE 100 MG TABLET 1 TABLET ORALLY ONCE A DAY, NOTES: 09-08-19 103 TAKING AJOVY 225 MG/1.5ML SOLUTION PREFILLED SYRINGE 1.5 ML SUBCUTANEOUS , NOTES: 1 MONTH AGO TAKING IBU-200 200 MG TABLET 3 TABLETS WITH FOOD OR MILK NEEDED ORALLY THREE TIMES A DAY, NOTES: 09-08-19 103 NOT-TAKING TESSALON PERLES 100 MG CAPSULE 1 CAPSULE NEEDED ORALLY THREE TIMES A DAY, NOTES: LONG TIME AGO NOT-TAKING ZONISAMIDE 100 MG CAPSULE 1 CAPSULE ORALLY BEFORE BEDTIME NOT-TAKING NORTRIPTYLINE HCL 25 MG CAPSULE 1 CAPSULE ORALLY BEFORE BEDTIME NOT-TAKING CYMBALTA 30 MG CAPSULE DELAYED RELEASE PARTICLES 1 CAPSULE WITH FOOD ORALLY FOR PAIN BID MDD2 NOT-TAKING TIZANIDINE HCL 2 MG TABLET 1 TABLET NEEDED ORALLY FOR SPASMS AND PAIN BEFORE BEDTIME MAY REPEAT IN 4 HRS MDD2 NOT-TAKING IBUPROFEN 800 MG TABLET 1 TABLET WITH FOOD OR MILK NEEDED ORALLY EVERY 8 HOURS NEEDED NOT-TAKING OXYCODONE HCL 5 MG TABLET 1 TABLET ORALLY EVERY 4 HRS NEEDED MEDICATION LIST REVIEWED AND RECONCILED WITH THE PATIENT PAST MEDICAL HISTORY PEDAL EDEMA TRYPANOSOMA CRUZI EPISODES OF DIZZINESS NECK PAIN REFLUX LYME DISEASE 2010 MIGRAINE LEFT SHOULDER PAIN CONCUSSION BRAIN TUMOR ALLERGIES DOXYCYCLINE: RASH - ALLERGY IVP DYE: ANAPHYLAXIS - ALLERGY SEAFOOD: ANAPHYLAXIS - ALLERGY SURGICAL HISTORY CYST REMOVED ON THROAT 1975 TONSILLECTOMY 1980 LEFT KNEE SURGERY 1989 APPENDECTOMY 1999 HYSTERECTOMY 2014 GALL BLADDER 2016 LEFT SHOULDER REPAIR 08/18/18 LEFT SHOULDER SURGERY - REPAIR TORN LABRUM 11/25/18 BRAIN SURGERY 05/19/2019 FAMILY HISTORY FATHER: ALIVE, COPD, ASTHMA MOTHER: ALIVE, DDD, COPD, EMPHYSEMA, ASTHMA SIBLINGS: ALIVE, BROTHER- ASTHMA. LEAKY MITRAL VALVE SON(S): ALIVE DAUGHTER(S): ALIVE PATERNAL UNCLE: 1 SON(S) , 1 DAUGHTER(S) - HEALTHY. UNCLE - [place]. SOCIAL HISTORY GENERAL: TOBACCO USE ARE YOU A:NONSMOKER OTHERS AT HOME: SPOUSE, 3 CHILDREN. EDUCATION LEVEL OF EDUCATION:HIGH SCHOOL DIET: REGULAR. LANGUAGE LANGUAGES SPOKEN:SYRIAC DOMESTIC VIOLENCE DO YOU FEEL SAFE IN YOUR ENVIRONMENT?YES RECREATIONAL DRUG USE DRUG USE?NO EXERCISE: NO REGULAR EXERCISE. PAIN CLINIC PFS, CLERGY, PUBLIC HEALTH REFERRALS PFS REFERRAL NEEDED?NO CLERGY REFERRAL NEEDED?NO PUBLIC HEALTH REFERRAL NEEDED?NO WAS THE PROVIDER NOTIFIED OF ANY PERTINENT INFO?YES N/A HAS THE PATIENT BEEN EDUCATED REGARDING HIS/HER PLAN OF CARE?YES HAS THE PATIENT BEEN EDUCATED REGARDING PAIN, THE RISK FOR PAIN, THE IMPORTANCE OF EFFECTIVE PAIN MANAGEMENT, AND THE PAIN ASSESSMENT PROCESS?YES LATEX QUESTIONNAIRE LATEX ALLERGY : HAVE YOU EVER DEVELOPED ANY TYPE OF REACTION AFTER HANDLING LATEX PRODUCTS SUCH RUBBER GLOVES, CONDOMS, DIAPHRAGMS, BALLOONS, SOCKS, OR UNDERWEAR?NO LATEX ALLERGY : HAVE YOU EVER DEVELOPED ANY TYPE OF REACTION DURING OR AFTER DENTAL APPOINTMENT, VAGINAL/RECTAL EXAMINATION, SURGICAL PROCEDURE, OR ANY OTHER EXPOSURE?NO DATE ASKED : 04/18/2019 LATEX RISK : HAVE YOU EVER HAD ANY DIFFICULTY BREATHING OR HIVES AFTER EATING OR HANDLING ANY FRUITS, OR VEGETABLES; SUCH KIWI, BANANAS, STONE FRUITS, OR CHESTNUTSNO LATEX RISK : DO YOU HAVE A PREVIOUS PERSONAL HISTORY OF MORE THAN NINE SURGERIES, SPINA BIFIDA, OR REPEATED CATHERIZATIONS? YES - PLEASE INDICATE : > 9 SURGERIES LATEX RISK : ARE YOU FREQUENTLY EXPOSED TO LATEX PRODUCTS IN YOUR OCCUPATION?NO CAFFEINE CAFFEINE USE?YES 2 CUPS DAILY ADVANCE DIRECTIVE ADVANCE DIRECTIVE DISCUSSED WITH PATIENT:YES 09/19/2019 PT DOES NOT HAVE ANY ADVANCED DIRECTIVES AND SHE DECLINES INFORMATION ON HCP AT THIS TIME. LAS ORIENTAL ORTHODOX ORIENTAL ORTHODOX NO PREFERENCE MARITAL STATUS: . ALCOHOL SCREENING DID YOU HAVE A DRINK CONTAINING ALCOHOL IN THE PAST YEAR?NO POINTS0 INTERPRETATIONNEGATIVE OCCUPATION: DOES NOT WORK. 08/26/18 REVIEWED WITH PT. ADREVIEWED WITH PATIENT 11/19/18 0907 JSREVIEWED WITH PATIENT 08/18/2019 0906 JS. HOSPITALIZATION/MAJOR DIAGNOSTIC PROCEDURE SURGERY RELATED 1975 SURGERY RELATED 1980 SURGERY RELATED 1989 CHILD 1998 SURGERY RELATED 1999 CHILD 2003 LYME DISEASE 2010 COMPLICATED MIGRAINE 2013 HYSTERECTOMY 2014 SURGERY RELATED 04/2019 DEHYDRATION/LOSS OF CONSCIOUSNESS 05/2019 REVIEW OF SYSTEMS REVIEWED BY: PROVIDER: JANNET MCNAMARA . CONSTITUTIONAL: ANY CHANGE IN YOUR MEDICAL CONDITION? NO . CHILLS NO . FEVER NO . INFECTION: DO YOU HAVE NEW INFECTIONS? NO . DO YOU HAVE HISTORY OF MRSA? NO . MUSCULOSKELETAL: ANY NEW PATTERNS OF PAIN OR NUMBNESS? YES IMPROVEMENT R/T TRIGGER POINT INJECTIONS . GASTROENTEROLOGY: ANY NEW CHANGE IN BOWEL CONTROL? YES SINCE SURGERY 04/2019 . GENITOURINARY: ANY NEW CHANGE IN BLADDER CONTROL? NO . IS THERE A CHANCE YOU COULD BE ? NO . HEMATOLOGY/LYMPH: DO YOU TAKE ANY BLOOD THINNERS? (FOR EXAMPLE- COUMADIN, PLAVIX, AGGRENOX, PLATEL, PRADAXA, OR XARELTO) NO . WHEN WAS YOUR LAST DOSE? DATE: TIME: . NEUROLOGY: HAVE YOU FALLEN IN THE PAST 12 MONTHS? YES FELL IN MAY AFTER SURGERY ? R/T DEHYDRATED, FAINTED , ASSISTED BY DAUGHTER AND SPOUSE. PT DENIES INJURY FROM FALL . ANY NEW EXTREMITY NUMBNESS OR WEAKNESS? YES SINCE 2018, LEFT HAND . CARDIOLOGY: DO YOU HAVE A PACEMAKER OR DEFIBRILLATOR? NO . RESPIRATORY: HAVE YOU BEEN SICK IN THE PAST WEEK? NO . FEVER NO . FLU LIKE SYMPTOMS? NO . COUGH NO . INTEGUMENTARY: DO YOU HAVE ANY RASHES OR OPEN SORES? NO . ALLERGIC/IMMUNO: ARE YOU ALLERGIC TO IV DYE? YES . ANY NEW ALLERGIES? NO . PSYCHIATRIC: DO YOU HAVE THOUGHTS OF HURTING YOURSELF OR SOMEONE ELSE? NO . ARE YOU ABUSED, NEGLECTED, OR IN AN UNSAFE ENVIRONMENT? NO . ENDOCRINOLOGY: ARE YOU DIABETIC? NO . OTHER: DO YOU NEED ANY PRESCRIPTIONS? NO . IF YES, PLEASE LIST: ____ . ANY NEW PROBLEMS WITH YOUR MEDICATIONS? NO . WHEN DID YOU LAST EAT? ____ . WHEN DID YOU LAST DRINK? ____ . WHAT DID YOU LAST DRINK? ____ . NAME OF PERSON DRIVING YOU HOME? ____ . DO YOU HAVE ANY OTHER QUESTIONS OR CONCERNS NO . VITAL SIGNS WT 144.2 LBS, HT 63 IN, BMI 25.54 INDEX, BP 101/53 MM HG, HR 81 /MIN, RR 16 /MIN, TEMP 97.8 F, OXYGEN SAT % 100%, SAFE IN ENV? (Y/N) YES, NA INITIALS AW 1047, REVIEWED BY: LATISHA. EXAMINATION GENERAL EXAMINATION: GENERAL ALERT,NO DISTRESS . PSYCH AFFECT NORMAL . LUNGS: LUNG SOUNDS ARE CLEAR . HEART: HEART RATE REGULAR . MUSCULOSKELETAL: TRIGGER POINTS: NOTED OVER LEFT SHOULDER, LEFT TRAPEZIUS. PAIN IS AGGRAVATED WITH RANGE OF JOINT MOTION OF THE LEFT ARM.. ASSESSMENTS MYALGIA, OTHER SITE - M79.18 (PRIMARY) PAIN IN LEFT SHOULDER - M25.512 MYALGIA OF MUSCLE OF NECK - M79.18 PENDING BRAIN SURGERY. TREATMENT MYALGIA, OTHER SITE NOTES: TRIGGER POINT INJECTION, LEFT SHOULDER. PREVENTIVE MEDICINE PAIN CLINIC TEACHING: PROCEDURE TEACHING TRIGGER POINT PROCEDURE AND PRE PROCEDURE INSTRUCTIONS REVIEWED WITH PATIENT, PATIENT VERBALIZES UNDERSTANDING. 09/19/2019 PROCEDURE CODES FA211 ESTABILISHED PATIENT [facility] CHARGE DISPOSITION & COMMUNICATION FOLLOW UP POST (REASON: TRIGGER POINT INJECTION, LEFT SHOULDER) ELECTRONICALLY SIGNED BY ANDERS BLUM ON 09/20/2019 AT 09:54 AM EST DISCLAIMER : THIS IS A VISIT SUMMARY EXTRACTED FROM THE [facility] CHART. IT IS NOT A COPY OF THE [facility] PROGRESS NOTE. SANTA
== END ==
LOC: M PAIN 10:30
PROVIDERS: ATTEND Nurse Practitioner Family
DX: M79.18 Myalgia, other site (principal); M25.512 Pain in left shoulder

== ENCOUNTER → 2019-09-30 | Outpatient (CLI) | payer OTHER ==
[~2019-09-30] MED LIST changes: +BUPIVACAINE HCL 0.25% 30 ML VIAL As Ordered ONE; +TRIAMCINOLONE ACETONIDE SUSP 40 MG/ML VIAL (J3301) As Ordered ONE
--- NOTE | 2019-10-06 02:32 | ECWPNPC ---
PATIENT NAME: JONE HATFIELD : 1975 GENDER: FEMALE VISIT DATE: 09/30/2019 DISCHARGE DATE: 09/30/19 1002 VISIT LOCKED DATE TIME: PHYSICIAN: MARY HILL MD RESOURCE: MARY HILL MD REASON FOR APPOINTMENT 1. NF-TPI LEFT SHOULDER HISTORY OF PRESENT ILLNESS HISTORY OF PRESENT ILLNESS: PAIN THE PATIENT DESCRIBES THE PAIN... FALL RISK SCREENING: SCREENING :NO FALLS REPORTED IN THE LAST YEAR CURRENT MEDICATIONS TAKING PENNSAID 2 % SOLUTION 2 PUMPS TO AFFECTED AREA LEFT SHOULDER TRANSDERMAL TWICE A DAY NEEDED FOR PAIN, NOTES: 1 MONTH TAKING MAGNESIUM 200 MG TABLET 2 CAPSULE WITH A MEAL ORALLY ONCE A DAY, NOTES: 09/28 8AM TAKING VITAMIN B-2 100 MG TABLET 2 TABLET ORALLY ONCE A DAY, NOTES: 09/28 8AM TAKING ACETAMINOPHEN 500 MG TABLET 2 TABLET ORALLY EVERY 8 HRS NEEDED, NOTES: 1 WEEK TAKING AMITRIPTYLINE HCL 50 MG TABLET 1 TABLET AT BEDTIME ORALLY ONCE A DAY, NOTES: 09/28 10PM TAKING TOPIRAMATE 100 MG TABLET 1 TABLET ORALLY ONCE A DAY, NOTES: 09/28 10P TAKING AJOVY 225 MG/1.5ML SOLUTION PREFILLED SYRINGE 1.5 ML SUBCUTANEOUS , NOTES: JULY TAKING IBU-200 200 MG TABLET 3 TABLETS WITH FOOD OR MILK NEEDED ORALLY THREE TIMES A DAY, NOTES: 09/27 NOT-TAKING TESSALON PERLES 100 MG CAPSULE 1 CAPSULE NEEDED ORALLY THREE TIMES A DAY, NOTES: LONG TIME AGO NOT-TAKING ZONISAMIDE 100 MG CAPSULE 1 CAPSULE ORALLY BEFORE BEDTIME NOT-TAKING NORTRIPTYLINE HCL 25 MG CAPSULE 1 CAPSULE ORALLY BEFORE BEDTIME NOT-TAKING CYMBALTA 30 MG CAPSULE DELAYED RELEASE PARTICLES 1 CAPSULE WITH FOOD ORALLY FOR PAIN BID MDD2 NOT-TAKING TIZANIDINE HCL 2 MG TABLET 1 TABLET NEEDED ORALLY FOR SPASMS AND PAIN BEFORE BEDTIME MAY REPEAT IN 4 HRS MDD2 NOT-TAKING IBUPROFEN 800 MG TABLET 1 TABLET WITH FOOD OR MILK NEEDED ORALLY EVERY 8 HOURS NEEDED NOT-TAKING OXYCODONE HCL 5 MG TABLET 1 TABLET ORALLY EVERY 4 HRS NEEDED MEDICATION LIST REVIEWED AND RECONCILED WITH THE PATIENT PAST MEDICAL HISTORY PEDAL EDEMA TRYPANOSOMA CRUZI EPISODES OF DIZZINESS NECK PAIN REFLUX LYME DISEASE 2010 MIGRAINE LEFT SHOULDER PAIN CONCUSSION BRAIN TUMOR ALLERGIES DOXYCYCLINE: RASH - ALLERGY IVP DYE: ANAPHYLAXIS - ALLERGY SEAFOOD: ANAPHYLAXIS - ALLERGY SURGICAL HISTORY CYST REMOVED ON THROAT 1975 TONSILLECTOMY 1980 LEFT KNEE SURGERY 1989 APPENDECTOMY 1999 HYSTERECTOMY 2014 GALL BLADDER 2015 LEFT SHOULDER REPAIR 08/18/18 LEFT SHOULDER SURGERY - REPAIR TORN LABRUM 11/25/18 BRAIN SURGERY 05/19/2019 FAMILY HISTORY FATHER: ALIVE, COPD, ASTHMA MOTHER: ALIVE, DDD, COPD, EMPHYSEMA, ASTHMA SIBLINGS: ALIVE, BROTHER- ASTHMA. LEAKY MITRAL VALVE SON(S): ALIVE DAUGHTER(S): ALIVE PATERNAL UNCLE: 1 SON(S) , 1 DAUGHTER(S) - HEALTHY. UNCLE - [place]. SOCIAL HISTORY GENERAL: TOBACCO USE ARE YOU A:NONSMOKER OTHERS AT HOME: SPOUSE, 3 CHILDREN. EDUCATION LEVEL OF EDUCATION:HIGH SCHOOL DIET: REGULAR. LANGUAGE LANGUAGES SPOKEN:FAROESE DOMESTIC VIOLENCE DO YOU FEEL SAFE IN YOUR ENVIRONMENT?YES RECREATIONAL DRUG USE DRUG USE?NO EXERCISE: NO REGULAR EXERCISE. PAIN CLINIC PFS, CLERGY, PUBLIC HEALTH REFERRALS PFS REFERRAL NEEDED?NO CLERGY REFERRAL NEEDED?NO PUBLIC HEALTH REFERRAL NEEDED?NO WAS THE PROVIDER NOTIFIED OF ANY PERTINENT INFO?YES N/A HAS THE PATIENT BEEN EDUCATED REGARDING HIS/HER PLAN OF CARE?YES HAS THE PATIENT BEEN EDUCATED REGARDING PAIN, THE RISK FOR PAIN, THE IMPORTANCE OF EFFECTIVE PAIN MANAGEMENT, AND THE PAIN ASSESSMENT PROCESS?YES LATEX QUESTIONNAIRE LATEX ALLERGY : HAVE YOU EVER DEVELOPED ANY TYPE OF REACTION AFTER HANDLING LATEX PRODUCTS SUCH RUBBER GLOVES, CONDOMS, DIAPHRAGMS, BALLOONS, SOCKS, OR UNDERWEAR?NO LATEX ALLERGY : HAVE YOU EVER DEVELOPED ANY TYPE OF REACTION DURING OR AFTER DENTAL APPOINTMENT, VAGINAL/RECTAL EXAMINATION, SURGICAL PROCEDURE, OR ANY OTHER EXPOSURE?NO LATEX RISK : HAVE YOU EVER HAD ANY DIFFICULTY BREATHING OR HIVES AFTER EATING OR HANDLING ANY FRUITS, OR VEGETABLES; SUCH KIWI, BANANAS, STONE FRUITS, OR CHESTNUTSNO LATEX RISK : DO YOU HAVE A PREVIOUS PERSONAL HISTORY OF MORE THAN NINE SURGERIES, SPINA BIFIDA, OR REPEATED CATHERIZATIONS? YES - PLEASE INDICATE : > 9 SURGERIES LATEX RISK : ARE YOU FREQUENTLY EXPOSED TO LATEX PRODUCTS IN YOUR OCCUPATION?NO DATE ASKED : 09/30/2019 CAFFEINE CAFFEINE USE?YES 2 CUPS DAILY ADVANCE DIRECTIVE ADVANCE DIRECTIVE DISCUSSED WITH PATIENT:YES PT DOES NOT HAVE ANY ADVANCED DIRECTIVES AND SHE DECLINES INFORMATION ON HCP AT THIS TIME. RASTAFARI RASTAFARI NO PREFERENCE MARITAL STATUS: . ALCOHOL SCREENING DID YOU HAVE A DRINK CONTAINING ALCOHOL IN THE PAST YEAR?NO POINTS0 INTERPRETATIONNEGATIVE OCCUPATION: DOES NOT WORK. HOSPITALIZATION/MAJOR DIAGNOSTIC PROCEDURE SURGERY RELATED 1975 SURGERY RELATED 1980 SURGERY RELATED 1989 CHILD 1998 SURGERY RELATED 1999 CHILD 2003 LYME DISEASE 2010 COMPLICATED MIGRAINE 2013 HYSTERECTOMY 2014 SURGERY RELATED 04/2019 DEHYDRATION/LOSS OF CONSCIOUSNESS 05/2019 REVIEW OF SYSTEMS REVIEWED BY: PROVIDER: . CONSTITUTIONAL: ANY CHANGE IN YOUR MEDICAL CONDITION? NO . CHILLS NO . FEVER NO . INFECTION: DO YOU HAVE NEW INFECTIONS? NO . DO YOU HAVE HISTORY OF MRSA? NO . MUSCULOSKELETAL: ANY NEW PATTERNS OF PAIN OR NUMBNESS? YES, PT STATES THAT PAIN IS INCREASING . GASTROENTEROLOGY: ANY NEW CHANGE IN BOWEL CONTROL? NO . GENITOURINARY: ANY NEW CHANGE IN BLADDER CONTROL? NO . IS THERE A CHANCE YOU COULD BE ? NO . HEMATOLOGY/LYMPH: DO YOU TAKE ANY BLOOD THINNERS? (FOR EXAMPLE- COUMADIN, PLAVIX, AGGRENOX, PLATEL, PRADAXA, OR XARELTO) NO . WHEN WAS YOUR LAST DOSE? DATE: TIME: . NEUROLOGY: HAVE YOU FALLEN IN THE PAST 12 MONTHS? NO . ANY NEW EXTREMITY NUMBNESS OR WEAKNESS? NO . CARDIOLOGY: DO YOU HAVE A PACEMAKER OR DEFIBRILLATOR? NO . RESPIRATORY: HAVE YOU BEEN SICK IN THE PAST WEEK? NO . FEVER NO . FLU LIKE SYMPTOMS? NO . COUGH NO . INTEGUMENTARY: DO YOU HAVE ANY RASHES OR OPEN SORES? NO . ALLERGIC/IMMUNO: ARE YOU ALLERGIC TO IV DYE? NO . ANY NEW ALLERGIES? NO . PSYCHIATRIC: DO YOU HAVE THOUGHTS OF HURTING YOURSELF OR SOMEONE ELSE? NO . ARE YOU ABUSED, NEGLECTED, OR IN AN UNSAFE ENVIRONMENT? NO . ENDOCRINOLOGY: ARE YOU DIABETIC? NO . OTHER: DO YOU NEED ANY PRESCRIPTIONS? NO . IF YES, PLEASE LIST: ____ . ANY NEW PROBLEMS WITH YOUR MEDICATIONS? NO . WHEN DID YOU LAST EAT? 35 6PM . WHEN DID YOU LAST DRINK? 09/28 10PM . WHAT DID YOU LAST DRINK? WATER . NAME OF PERSON DRIVING YOU HOME? ARCENIO . DO YOU HAVE ANY OTHER QUESTIONS OR CONCERNS NO . VITAL SIGNS WT 144.2 LBS, HT 63 IN, BMI 25.54 INDEX, BP 106/65 MM HG, HR 84 /MIN, RR 16 /MIN, TEMP 98.3 F, OXYGEN SAT % 100, SAFE IN ENV? (Y/N) Y, REVIEWED BY: DS. ASSESSMENTS MYALGIA, OTHER SITE - M79.18 (PRIMARY) PROCEDURES PN TRIGGER POINT INJECTION WITH STEROIDS PRE PROCEDURE DIAGNOSIS 1. MYALGIA 2. PAIN AT LEFT SHOULDER AREA. POST PROCEDURE DIAGNOSIS 1. MYALGIA 2. PAIN AT LEFT SHOULDER AREA. PROCEDURE TRIGGER POINT INJECTION AT LEFT SHOULDER AREA. SURGEON DR. MARY HILL ELECTRIC MOTOR REPAIRER NONE ANESTHESIA LOCAL PRE PROCEDURE NOTE THE PATIENT HAS A HISTORY OF CHRONIC PAIN AT THE LEFT SHOULDER AREA. I EVALUATED THE PATIENT AND REVIEWED THE CHART. THERE IS EVIDENCE OF BANDS OF TISSUE WITH RESTRICTION OF MOVEMENT AND PRESENCE OF TRIGGER POINT AT THE AFFECTED AREA. I WENT OVER THE RISKS, ALTERNATIVES, AND BENEFITS ASSOCIATED WITH THIS PROCEDURE. THE PATIENT WOULD LIKE TO PROCEED AND GIVES CONSENT TO PERFORM THE PROCEDURE. THE PATIENT DENIES UNEXPLAINABLE WEIGHT LOSS, FEVER, CHILLS, OR NEW CHANGES IN URINARY OR BOWEL CONTROL DESCRIPTION OF PROCEDURE THE PATIENT WAS BROUGHT TO THE PROCEDURE ROOM AND PLACED IN THE SITTING POSITION. THE AREA WAS CLEANED WITH ALCOHOL. THE PROCEDURE WAS DONE USING ASEPTIC STERILE TECHNIQUE. I CHECKED LATERALITY AND THE LEVEL WHERE THE PROCEDURE WAS GOING TO BE PERFORMED WITH THE PATIENT AND THE SUPPORTING STAFF AT THE MOMENT OF THE TIME OUT IN THE PROCEDURE ROOM. USING A 25-GAUGE NEEDLE, TRIGGER POINTS WERE INJECTED AT THE LEFT SHOULDER AREA WITH A TOTAL OF 40 ML OF BUPIVACAINE 0.25% AND KENALOG 40 MG. THERE WAS NO EVIDENCE OF BLOOD, PARESTHESIA OR CEREBROSPINAL FLUID DURING THE PROCEDURE. THE PATIENT WAS SENT TO THE RECOVERY ROOM. THE PATIENT WAS MOVING THE EXTREMITIES AND DOING WELL. THERE WAS NO COMPLICATION DURING THE PROCEDURE POST PROCEDURE NOTE THE PATIENT WILL BE SEEN IN A FOLLOW UP IN THE NEXT FEW WEEKS TO SEE HOW THE INJECTION IS HELPING WITH HER PAIN. I AM LOOKING FOR LONG LASTING PAIN RELIEF FOR THE PATIENT WITH THIS INJECTION. DEPENDING ON THIS INJECTION'S RESULT, I MAY CONSIDER REPEATING A TRIGGER POINT INJECTION, BUT WITHOUT STEROIDS IN THE FUTURE. INSTRUCTIONS WERE GIVEN, QUESTIONS WERE ANSWERED, AND THE PATIENT EXPRESSED UNDERSTANDING AND AGREES WITH THE PLAN. I, MONROE GARCIA, DOCUMENTED THE ABOVE INFORMATION ACTING A SCRIBE FOR DR. HILL. I HAVE REVIEWED THE ABOVE DOCUMENT, WRITTEN BY MONROE JAMESIBRenata AND I VERIFY THAT IT IS ACCURATE. PROCEDURE CODES 60098 INJ TRIGGER POINT / MUSC DISPOSITION & COMMUNICATION FOLLOW UP 3 WEEKS ELECTRONICALLY SIGNED BY MARY HILL MD, MD ON 10/05/2019 AT 11:43 AM EDT DISCLAIMER : THIS IS A VISIT SUMMARY EXTRACTED FROM THE [employer] App CHART. IT IS NOT A COPY OF THE [employer] PROGRESS NOTE. [place]
== END ==
LOC: M PAIN 09:00
PROVIDERS: ATTEND Anesthesiology
DX: M79.18 Myalgia, other site (principal)
CPT/HCPCS: 20552; J3301

== ENCOUNTER → 2019-10-11 | Outpatient (CLI) | payer OTHER ==
[~2019-10-11] MED LIST changes: -BUPIVACAINE HCL 0.25% 30 ML VIAL As Ordered ONE; -TRIAMCINOLONE ACETONIDE SUSP 40 MG/ML VIAL (J3301) As Ordered ONE
== END ==
LOC: M LAB 12:49
PROVIDERS: ATTEND Internal Medicine Gastroenterology
DX: R19.7 Diarrhea, unspecified (principal)

== ENCOUNTER → 2021-10-17 | Outpatient (CLI) | payer OTHER | LOC: M WHC 16:25 | PROVIDERS: ATTEND Student in an Organized Health Care Education/Training Program | DX: Z12.31 Encounter for screening mammogram for malignant neoplasm of breast (principal) ==

== ENCOUNTER → 2021-10-30 | Outpatient (CLI) | payer OTHER | LOC: M WHC 12:52 | PROVIDERS: ATTEND Student in an Organized Health Care Education/Training Program | DX: Z12.31 Encounter for screening mammogram for malignant neoplasm of breast (principal) ==

== ENCOUNTER → 2021-11-19 | Outpatient (CLI) | payer OTHER ==
[~2021-11-19] MED LIST changes: +FOLI1TAB11 PO; +HYDR200T3 PO; +METH2.5T48 PO; +TOPA100T12 PO
[2021-11-19 15:12] VITALS: BP 112/80
== END ==
LOC: M WHCPRO 13:36
PROVIDERS: ATTEND Student in an Organized Health Care Education/Training Program
DX: N63.21 Unspecified lump in the left breast, upper outer quadrant (principal)

== ENCOUNTER → 2022-11-18 | Outpatient (REF) | payer OTHER ==
[~2022-11-18] MED LIST changes: -ZONI100C17 PO; +ZONI100C67 PO
== END ==
LOC: M SFHCDERM 17:36
PROVIDERS: ATTEND Physician Assistant
DX: I78.1 Nevus, non-neoplastic (principal)

== ENCOUNTER → 2023-07-17 | Outpatient (REF) | payer OTHER ==
[~2023-07-17] MED LIST changes: -HYDR200T3 PO; +HYDR200T46 PO
== END ==
LOC: M SFHCPLAZ 15:21
PROVIDERS: ATTEND Nurse Practitioner Family
DX: Z53.9 Procedure and treatment not carried out, unspecified reason (principal)

== ENCOUNTER → 2024-03-04 | Outpatient (REF) | payer OTHER | LOC: M SFHCPLAZ 11:41 | PROVIDERS: ATTEND Nurse Practitioner Family | DX: L71.8 Other rosacea (principal) ==

== ENCOUNTER → 2024-06-06 | Outpatient (CLI) | payer OTHER | LOC: M WUC 14:32 | PROVIDERS: ATTEND Nurse Practitioner Family | DX: M25.541 Pain in joints of right hand (principal) ==

== ENCOUNTER 2024-08-10 11:35 | Emergency (ER) | payer OTHER ==
[~2024-08-10] VITALS: Ht 160 cm; Wt 71.8 kg
[2024-08-10 12:33] LABS: BASO % 0.5 % (0.0-1.0); EOS # 0.1 10^3/uL (0.0-0.5); EOS % 1.2 % (0.0-3.0); LYMPH # 2.9 10^3/uL (1.5-5.0); LYMPH % 39.6 % (24.0-44.0); MEAN CORPUSCULAR HEMOGLOBIN 30.8 pg (27.0-33.0); MEAN CORPUSCULAR HGB CONC 33.3 g/dl (32.0-36.5); MEAN CORPUSCULAR VOLUME 92.4 fl (80.0-96.0); MONO # 0.7 10^3/uL (0.0-0.8); MONO % 9.7 % (2.0-8.0); NEUTROPHILS # 3.4 10^3/uL (1.5-8.5); NEUTROPHILS % 46.5 % (36.0-66.0); PLATELET COUNT, AUTOMATED 413 10^3/uL (150-450); RED BLOOD COUNT 4.87 10^6/uL (4.00-5.40); WHITE BLOOD COUNT 7.3 10^3/uL (4.0-10.0)
[2024-08-10 12:57] LABS: BLOOD UREA NITROGEN 15 MG/DL (9-23); CALCIUM LEVEL 8.8 MG/DL (8.5-10.1); CARBON DIOXIDE LEVEL 27 MMOL/L (20-31); CHLORIDE LEVEL 107 MMOL/L (98-107); CREATININE FOR GFR 0.82 MG/DL (0.55-1.30); GLOMERULAR FILTRATION RATE > 60.0 (>58); GLUCOSE, FASTING 90 MG/DL (60-100); POTASSIUM SERUM 3.6 MMOL/L (3.5-5.1); SODIUM LEVEL 142 MMOL/L (136-145)
[2024-08-10 13:50] VITALS: BP 102/58; TEMP 98; O2SAT 100
[2024-08-10] MEDS ORDERED: ONDA-282 PO (14:48)
== END 2024-08-10 15:08 | disposition home or self-care (01) ==
LOC: M ED 11:35
DX: J09.X2 Influenza due to identified novel influenza A virus with other respiratory manifestations (principal); I10 Essential (primary) hypertension; Z88.1 Allergy status to other antibiotic agents; Z91.041 Radiographic dye allergy status; Z91.013 Allergy to seafood; Z79.1 Long term (current) use of non-steroidal anti-inflammatories (NSAID); Z79.899 Other long term (current) drug therapy